=== PATIENT | female | born 2000 | race Caucasian/White ===

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

== ENCOUNTER 2021-01-14 11:32 | Emergency (ER) | payer OTHER, SELFPAY ==
[2021-01-14 12:08] VITALS: BP 98/70; PULSE 83; RESP 18; TEMP 36.8; O2SAT 100
--- NOTE | 2021-01-14 12:10 | PC.NURSE ---
Dr. Cardenas and TEZ Garcias, made aware that pt is moderate risk on [place] Risk Assessment.
[2021-01-14 12:25] LABS: Basophils Percent Auto 0.6 % (0.2-1.2); Eosinophils Absolute Auto 0.2 K/mm3 (0-0.3); Eosinophils Percent Auto 3.4 % (0-4.4); Hematocrit 38.4 % (37.0-47.0); Hemoglobin 12.9 g/dL (12.0-15.0); Immature Granulocyte Absolute 0.02 K/mm3 (0.00-0.031); Immature Granulocyte Percent A 0.3 % (0-0.5); Lymphocytes Absolute Auto 2.29 K/mm3 (0.9-3.2); Lymphocytes Percent Auto 35.8 % (18.3-44.2); Mean Corpuscular HGB Conc 33.6 g/dl (32-36); Mean Corpuscular Hemoglobin 29.4 pg (26-34); Mean Corpuscular Volume 87.5 fl (80-100); Mean Platelet Volume 8.8 fl (7.4-10.4); Monocytes Absolute Auto 0.4 K/mm3 (0.1-0.6); Monocytes Percent Auto 6.6 % (2.6-8.5); Neutrophils Absolute Auto 3.4 K/mm3 (1.3-6.7); Neutrophils Percent Auto 53.3 % (45.5-73.1); Platelet Count Result 326 k/mm3 (150-375); Red Blood Count 4.39 M/mm3 (4.2-5.4); Red Cell Distribution Width 12.1 % (11.5-14.5); White Blood Count 6.4 K/mm3 (4.5-10.0)
[2021-01-14 12:36] LABS: Alanine Aminotransferase 12 U/L (4-35); Albumin Level 4.5 g/dL (3.7-5.6); Alkaline Phosphatase 107 U/L (45-116); Anion Gap 6 mmol/L (8-16); Aspartate Amino Transferase 21 U/L (14-36); Bilirubin,Total 0.4 mg/dL (0.2-1.3); Blood Urea Nitrogen 5 mg/dL (8-21); Calcium 9.2 mg/dL (8.9-10.7); Carbon Dioxide 23 mmol/L (22-30); Chloride 109 mmol/L (98-107); Estimated CRCL calculation 68 ml/min; Estimated Glomerular Filt Rate > 60; Glucose 87 mg/dL (65-105); Potassium 3.6 mmol/L (3.4-5.0); Sodium 138 mmol/L (134-143)
[2021-01-14 12:37] VITALS: BP 115/75; PULSE 78; RESP 18; O2SAT 98
[2021-01-14 12:37] LABS: INR 0.9; Prothrombin Time 12.9 Seconds (11.1-14.7)
[2021-01-14 12:38] LABS: Partial Thromboplastin Time 27.5 SECONDS (22.3-36.8)
--- NOTE | 2021-01-14 13:05 | ED.FEMALEGU ---
HPI - Female Genitourinary General Chief complaint: Vaginal Bleeding Stated complaint: heavy menses, vag bleed Time Seen by Provider: 01/14/21 12:28 History of Present Illness HPI Narrative: Heavy menstraul bleeding since this morning. Going through about 1 pad per hour. History of irregular periods. Previously on oral contraceptives for this, but she did not take them consitantly, so they were stopped. No abdominal pain, nausea, vomiting, dyuria, urinary frequency, dizziness, weakness, SOB. Related Data Home Medications Medication Instructions Recorded Confirmed alprazolam 0.5 mg tablet,extended 0.5 mg PO DAILY 03/14/20 06/29/20 release 24 hr bupropion HCl 150 mg 24 hr tablet, 150 mg PO QAM 03/14/20 06/29/20 extended release [id number] 1 cap PO Q6H PRN 03/14/20 06/29/20 50 mg-325 mg-40 mg capsule citalopram 20 mg tablet 30 mg PO DAILY tablet 03/14/20 06/29/20 lithium carbonate 300 mg 1,200 mg PO .QHS tablet 03/14/20 06/29/20 tablet,extended release melatonin 5 mg tablet 10 mg PO .QHS tablet 03/14/20 06/29/20 prazosin 2 mg capsule 2 mg PO QPM 03/14/20 06/29/20 Allergies Allergy/AdvReac Type Severity Reaction Status Date / Time amoxicillin Allergy Unknown Hives Verified 01/20/21 08:55 lamotrigine Allergy Unknown Hives Verified 01/20/21 08:55 Sulfa (Sulfonamide Allergy Unknown Unknown Verified 01/20/21 08:55 Antibiotics) sulfamethizole Allergy Unknown Hives Verified 01/20/21 08:55 sulfamethoxazole Allergy Unknown Unknown Verified 01/20/21 08:55 trimethoprim Allergy Unknown Hives Verified 01/20/21 08:55 Review of Systems Review of Systems: All systems reviewed & are unremarkable except as noted in HPI and below Constitutional: Constitutional: Reports no additional constitutional complaints Cardiovascular: Cardiovascular: Denies chest pain Gastrointestinal: Gastrointestinal: Reports as per HPI Genitourinary: Genitourinary: Reports as per HPI Neurologic: Reports system reviewed and no additional complaints, except as documented Hematologic/Lymphatic: Hematologic/Lymphatic: Denies easy bleeding and Denies easy bruising PMFSH Past Medical History Medical History Bipolar disorder in partial remission Chronic migraine Social History Social History Social History: Single Smoking status: Smoker, status unknown (Pt vapes) Tobacco type: e-cigarettes/vaping Second hand tobacco smoke exposure: Yes Alcohol intake: never Substance use: former Substance use type: marijuana Last use: 3mo ago Gender identity (if verbalized by the patient): Female Exam Const: General: healthy appearing, no acute distress and alert Orientation/consciousness: patient oriented x3 HENMT: Head: normal to inspection Neck: Neck: normal visual inspection and no lymphadenopathy Chest: Chest palpation & inspection: no tenderness Resp: Effort & Inspection: normal respiratory effort Auscultation: clear to auscultation bilaterally, no rales, no rhonchi and no wheezes Cardio: Jugular venous distension: no JVD Rate: regular rate Rhythm: regular rhythm Heart sounds: no murmurs GI: Inspection: non-distended GI Palp: Yes Soft to palpation and No Tenderness to palpation present (GI) : External Female Exam: normal external appearance Speculum Exam - Vagina: vaginal bleeding (very mild) Speculum Exam - Cervix: normal appearance of the cervix Skin: General skin exam: normal color Neuro: General: patient oriented x3 and moves all extremities Speech: normal speech Extrem: General: no edema Psych: Appearance: well kempt Affect: normal affect Course Vital Signs Vital signs: Vital Signs Temperature 36.8 C 01/14/21 12:08 Pulse Rate 83 01/14/21 12:08 Respiratory Rate 18 01/14/21 12:08 Blood Pressure 98/70 L 01/14/21 12:08 Pulse Oximetry 100
[2021-01-14 13:42] LABS: Add Urine Microscopic? YES; Appearance Urine Cloudy (Clear); Bacteria Urine Trace /hpf; Bilirubin Urine Negative (Negative); Blood Urine 3+ (Negative); Color Urine Yellow (Yellow); Glucose Urine UA Negative (Negative); Ketones Urine Negative (Negative); Leukocyte Esterase Ur Negative LEU/UL (Negative); Nitrate Urine Negative (Negative); Protein Urine 1+ mg/dL (Negative); Specific Grav Ur 1.003 (1.001-1.035); Squamous Epithelial Cell Urine Many /hpf (Few); Urobilinogen Urine Negative mg/dL (<2.0); WBC Urine 0-3 /hpf
[2021-01-14 14:57] VITALS: BP 128/76; PULSE 70; RESP 18; O2SAT 98
== END 2021-01-14 14:58 | disposition home or self-care (01) ==
PROVIDERS: Emergency Medicine; Emergency Provider Emergency Medicine; PCP Family Medicine
DX: N93.9 Abnormal uterine and vaginal bleeding, unspecified (principal); F31.9 Bipolar disorder, unspecified; F17.290 Nicotine dependence, other tobacco product, uncomplicated
CPT/HCPCS: 36415; 80053; 81001; 81025; 85025; 85610; 85730; 99283

== ENCOUNTER 2022-04-10 04:47 | Emergency (ER) | payer BC, OTHER, SELFPAY ==
[2022-04-10 04:50] VITALS: BP 116/71; PULSE 54; RESP 14; TEMP 36.3; O2SAT 100
--- NOTE | 2022-04-10 06:39 | PC.NURSE ---
Patient came to intake/triage desk and informed publicity writer that she was just going to leave and call her dentist.
== END 2022-04-10 06:53 | disposition left against medical advice (07) ==
LOC: ANHED 06:53
PROVIDERS: PCP Family Medicine
DX: K08.89 Other specified disorders of teeth and supporting structures (principal)
CPT/HCPCS: 99199

== ENCOUNTER → 2022-05-10 12:21 | Outpatient (CLI) | payer BC, OTHER, SELFPAY ==
--- NOTE | ~2022-05-10 | US_ITS ---
EXAMINATION: US pelvic complete w TV DATE: 05/10/2022 13:40 INDICATION: Abnormal bleeding. Comparison:No prior studies for comparison. TECHNIQUE: Multiple transabdominal and endovaginal sonographic images of the pelvis performed. FINDINGS: The uterus measures 6.3 x 2.7 x 3.3 cm. The endometrial complex measures 3 mm. The right ovary measures 4.1 x 1.9 x 1.8 cm and the left ovary measures 2.4 x 1.4 x 1.5 cm. There ar e small follicles in each ovary. Normal doppler signal in both ovaries. There is no free fluid in the pelvis. There are no abnormal masses seen on either side. IMPRESSION: 1. Unremarkable pelvic ultrasound. Reviewed, dictated and finalized at location [facility].
== END ==
PROVIDERS: PCP Family Medicine; Visit Provider Nurse Practitioner
DX: N93.8 Other specified abnormal uterine and vaginal bleeding (principal)
CPT/HCPCS: 76830; 76856

== ENCOUNTER 2022-06-25 04:32 | Emergency (ER) | payer BC, OTHER, SELFPAY ==
--- NOTE | ~2022-06-25 | CT_ITS ---
EXAMINATION: CT brain wo con DATE: 06/25/2022 05:22 INDICATION: chronic cluster headaches TECHNIQUE: Computed tomography (CT) of the head was performed without intravenous contrast. Sagittal and coronal reconstructions were performed. The mA was adjusted according to patient size. Iterative reconstruction technique was employed. The dose-length product was 605.33 mGy-cm. COMPARISON: Brain MR dated 03/24/2018 FINDINGS: No acute intracranial hemorrhage, acute infarction or abnormal extra axial fluid collection. Ventricl es are normal and symmetric. No mass/mass effect. The orbits, paranasal sinuses and mastoid air cells are normal. IMPRESSION: 1. Normal head CT. Reviewed, dictated and finalized at [facility]. IMPRESSION: 1. Normal head CT.
[2022-06-25 04:41] VITALS: BP 120/76; PULSE 81; RESP 20; TEMP 36.6; O2SAT 100
--- NOTE | 2022-06-25 05:32 | ED.GENADULT ---
HPI - General Adult General Chief complaint: Headache Stated complaint: HENDRICKS Time Seen by Provider: 06/25/22 04:34 History of Present Illness HPI narrative: Patient a 22-year-old female who presents the emergency department with chief complaint of headache. Patient reports she has history of headaches and reports this evening her headache was a little different than normal. Patient states that she took her headache medications and has not had relief of her symptoms the patient also reports that she has been little twitchy and has noticed that she had some tingling on the right side of her face. The patient denies focal neurological deficit. Related Data Home Medications Medication Instructions Recorded Confirmed melatonin 5 mg tablet 10 mg PO .QHS 03/14/20 02/08/22 citalopram 20 mg tablet 60 mg PO DAILY 02/08/22 02/08/22 lithium carbonate 300 mg 600 mg PO .QHS 02/08/22 02/08/22 tablet,extended release Allergies Allergy/AdvReac Type Severity Reaction Status Date / Time amoxicillin Allergy Unknown Hives Verified 06/25/22 04:49 lamotrigine Allergy Unknown Hives Verified 06/25/22 04:49 Sulfa (Sulfonamide Allergy Unknown Unknown Verified 06/25/22 04:49 Antibiotics) sulfamethizole Allergy Unknown Hives Verified 06/25/22 04:49 sulfamethoxazole Allergy Unknown Unknown Verified 06/25/22 04:49 trimethoprim Allergy Unknown Hives Verified 06/25/22 04:49 Review of Systems Review of Systems: A 10 system review of systems was completed on the patient and is negative except for what is stated in the HPI. Nursing and ancillary documentation was reviewed. [facility] Past Medical History Medical History Bipolar disorder in partial remission Chronic migraine Family History Family History Other Depression Heart disease Hypertension Social History Social History Social History: Single Smoking status: Never smoker Tobacco type: e-cigarettes/vaping Second hand tobacco smoke exposure: Yes Alcohol intake: never Substance use: former Substance use type: marijuana Last use: 3mo ago Gender identity (if verbalized by the patient): Female Sexual Orientation (if Verbalized by the Patient): Straight or Heterosexual Exam Narrative: GENERAL: Well-appearing, well-nourished, and in no acute distress. HEAD: Normocephalic, atraumatic. EYES: PERRLA and EOMI. ENT: Nares clear, no rhinorrhea or epistaxis. Mucous membranes moist. NECK: Supple. CHEST: Clear to auscultation. No respiratory distress. HEART: Regular rate and rhythm. No murmur heard. Normal peripheral pulses. ABDOMEN: Soft, nontender, nondistended, normal active bowel sounds. EXTREMITIES: Normal range of motion. No edema. SKIN: Warm, dry, no rash. NEURO: No focal deficits. Alert and oriented x3. PSYCH: Normal mood and affect. Course Course Emergency Course: Patient received Compazine Benadryl and fluids as well as Toradol the patient did have some secondary akathisia as an tachycardia after receiving the antiemetic and Benadryl and subsequently those side effects have passed and the patient is feeling much better at this time with a headache essentially resolved. CT head showed no evidence of acute abnormality. CT was obtained due to significant change in her headache from her standard headaches Vital Signs Vital signs: Vital Signs Temperature 36.6 C 06/25/22 04:41 Pulse Rate 81 06/25/22 04:41 Respiratory Rate 20 06/25/22 04:41 Blood Pressure 120/76 06/25/22 04:41 Pulse Oximetry 100 06/25/22 04:41 Oxygen Delivery Room Air 06/25/22 04:41 Temperature 36.6 C 06/25/22 04:41 Pulse Rate 96 06/25/22 06:01 Respiratory Rate 18 06/25/22 06:01 Blood Pressure 120/76 06/25/22 04:41 Pulse Oximetry 100 06/25/22 06:01 Oxygen Delivery Mayuri
[2022-06-25] MEDS: PROCHLORPERAZINE EDISYLATE 10 MG/2 ML VIAL IV PUSH (05:39)
[2022-06-25] MEDS: SODIUM CHLORIDE 0.9% IV 1,000 ML 999 ML IV CONT (05:39)
[2022-06-25] MEDS: diphenhydrAMINE HCl INJ 50 MG/ML VIAL IV PUSH (05:39)
[2022-06-25] MEDS: KETOROLAC 30 MG/ML VIAL (*BKC) IV PUSH (05:39)
[2022-06-25 05:43] LABS: Basophils Percent Auto 0.5 % (0.2-1.2); Eosinophils Absolute Auto 0.2 K/mm3 (0-0.3); Eosinophils Percent Auto 2.7 % (0-4.4); Immature Granulocyte Absolute 0.03 K/mm3 (0.00-0.031); Immature Granulocyte Percent A 0.4 % (0-0.5); Lymphocytes Absolute Auto 2.94 K/mm3 (0.9-3.2); Lymphocytes Percent Auto 34.8 % (18.3-44.2); Mean Corpuscular HGB Conc 33.3 g/dl (32-36); Mean Corpuscular Hemoglobin 29.5 pg (26-34); Mean Corpuscular Volume 88.6 fl (80-100); Mean Platelet Volume 8.8 fl (7.4-10.4); Monocytes Absolute Auto 0.7 K/mm3 (0.1-0.6); Monocytes Percent Auto 8.8 % (2.6-8.5); Neutrophils Absolute Auto 4.5 K/mm3 (1.3-6.7); Neutrophils Percent Auto 52.8 % (45.5-73.1); Platelet Count Result 290 k/mm3 (150-375); Red Blood Count 4.74 M/mm3 (4.2-5.4); White Blood Count 8.4 K/mm3 (4.5-10.0)
[2022-06-25 05:54] LABS: Alanine Aminotransferase 15 U/L (6-35); Albumin Level 4.7 g/dL (3.5-5.1); Alkaline Phosphatase 78 U/L (38-126); Anion Gap 14 mmol/L (8-16); Aspartate Amino Transferase 22 U/L (14-36); Bilirubin,Total 0.5 mg/dL (0.2-1.3); Blood Urea Nitrogen 8 mg/dL (7-17); Calcium 9.3 mg/dL (8.4-10.2); Carbon Dioxide 25 mmol/L (22-30); Chloride 102 mmol/L (98-107); Estimated CRCL calculation 95 ml/min; Estimated Glomerular Filt Rate > 60; Glucose 84 mg/dL (65-110); Magnesium 2.3 mg/dL (1.6-2.3); Potassium 3.5 mmol/L (3.4-5.0); Sodium 141 mmol/L (137-145)
--- NOTE | 2022-06-25 05:58 | ECG_ITS ---
Measurements Intervals [place] Rate: 118 P: 59 [place]: 163 QRS: 49 QRSD: 103 T: -24 QT: 324 QTc: 455 Interpretive Statements SINUS TACHYCARDIA LEFT ATRIAL ENLARGEMENT INCOMPLETE RIGHT BUNDLE BRANCH BLOCK BORDERLINE ST-T WAVE ABNORMALITY- ANTEROLAT/INF LEADS BASELINE ARTIFACT- AVF ABNORMAL ECG NO PREVIOUS ECG AVAILABLE FOR COMPARISON Electronically Signed On 06-25-2022 21:18:19 CDT by Tapan Owens D.O.
[2022-06-25 06:01] VITALS: PULSE 96; RESP 18; O2SAT 100
--- NOTE | 2022-06-25 06:05 | PC.NURSE ---
after administering initial medications pt heart rate increased to 130s sinus tach on EKG. EDP notified. Pt refuses any further medications at this time.
[2022-06-25 07:09] VITALS: BP 127/83; PULSE 67; RESP 16; O2SAT 100
== END 2022-06-25 07:00 | disposition home or self-care (01) ==
PROVIDERS: Emergency Provider Emergency Medicine; PCP Family Medicine
DX: R51.9 Headache, unspecified (principal); F31.9 Bipolar disorder, unspecified; R00.0 Tachycardia, unspecified; I45.10 Unspecified right bundle-branch block; R94.31 Abnormal electrocardiogram [ECG] [EKG]
CPT/HCPCS: 36415; 70450; 80053; 83735; 85025; 93005; 96361; 96374; 96375; 99284; J0780; J1200; J1885; J7030

== ENCOUNTER 2022-07-09 12:26 | Emergency (ER) | payer BC, OTHER, SELFPAY ==
--- NOTE | 2022-07-09 09:44 | ECG_ITS ---
Measurements Intervals [place] Rate: 68 P: 54 [place]: 147 QRS: 52 QRSD: 100 T: 27 QT: 399 QTc: 425 Interpretive Statements SINUS RHYTHM POSSIBLE LEFT ATRIAL ENLARGEMENT [-0.1mV P WAVE IN V1/V2] POSSIBLE RIGHT VENTRICULAR CONDUCTION DELAY [RSR (QR) IN V1/V2] NONSPECIFIC T-WAVE ABNORMALITY COMPARED TO ECG 06/25/2022 05:58:55 SINUS RHYTHM NOW PRESENT Electronically Signed On 07-20-2022 12:45:16 CDT by Sulema Marti M.D.
[2022-07-09 12:28] VITALS: BP 113/70; PULSE 69; RESP 16; TEMP 36.6; O2SAT 100
--- NOTE | 2022-07-09 12:45 | ED.CHESTPAIN ---
HPI - Chest Pain General Chief Complaint: Chest Pain Stated Complaint: CHEST PAIN Time Seen by Provider: 07/09/22 12:30 Source: patient Mode of arrival: ambulatory Limitations: no limitations History of Present Illness HPI narrative: Ms. Khan is a 22-year-old female patient presenting to the clinic today with complaints of midsternal chest pain radiating into the shoulders and down her arms. She reports that this started approximately 30 minutes prior to arrival. She contacted her manager [employer] and he stated to go to the urgent care so she came in to be evaluated today. States the pain is very sharp and going through her chest. She denies any shortness of breath. She does report that she does a lot of heavy lifting as she works at [employer]. Does have history of bipolar. Was seen in the ED on the and had some EKG changes-left atrial enlargement, T wave changes, and incomplete right bundle branch block. She was told to follow-up with a manager [employer] at that time but has not yet seen them. She denies any flulike or COVID symptoms. She does vape but denies any tobacco use. She is not currently on any control Related Data Home Medications Medication Instructions Recorded Confirmed melatonin 5 mg tablet 10 mg PO .QHS 03/14/20 07/09/22 citalopram 20 mg tablet 60 mg PO DAILY 02/08/22 07/09/22 lithium carbonate 300 mg 600 mg PO .QHS 02/08/22 07/09/22 tablet,extended release Allergies Allergy/AdvReac Type Severity Reaction Status Date / Time amoxicillin Allergy Unknown Hives Verified 07/09/22 12:37 lamotrigine Allergy Unknown Hives Verified 07/09/22 12:37 Sulfa (Sulfonamide Allergy Unknown Unknown Verified 07/09/22 12:37 Antibiotics) sulfamethizole Allergy Unknown Hives Verified 07/09/22 12:37 sulfamethoxazole Allergy Unknown Unknown Verified 07/09/22 12:37 trimethoprim Allergy Unknown Hives Verified 07/09/22 12:37 Review of Systems Review of Systems: Pertinent positives per HPI. Patient denies any fever, chills, rash, headache, visual changes, dizziness, cough, runny nose, sore throat, shortness of breath, palpitations, nausea, vomiting, diarrhea, constipation, abdominal pain, or any urinary issues. PMFSH Past Medical History Medical History Abnormal EKG Bipolar disorder in partial remission Chronic migraine Family History Family History Other Depression Heart disease Hypertension Social History Social History (Updated 07/09/22 @ 15:03 by Mckenna Wyatt PA-C) Social History: Single Smoking status: Current every day smoker Tobacco type: e-cigarettes/vaping Second hand tobacco smoke exposure: Yes Alcohol intake: never Substance use: former Substance use type: marijuana Last use: 3mo ago Gender identity (if verbalized by the patient): Female Sexual Orientation (if Verbalized by the Patient): Straight or Heterosexual Comments At the time of my signature, I reviewed and agree with the nursing past medical, surgical, social, and family history. There is no relevant family history pertinent to the patient complaint. Exam Narrative: General: Well-developed, well nourished, in no apparent distress Head: Normocephalic, atraumatic. Chest: Even rise and fall of chest wall with respirations, no chest wall deformity, nontender to palpation across anterior chest Cardio: Regular rate and rhythm, s1 and s2 normal, no murmur appreciated. Resp: Clear to auscultation bilaterally, no rhonchi, rales, wheezing or rubs. Extremities: No deformity, no edema, no cyanosis, capillary refill less than 2 seconds, peripheral pulses palpable and strong. Integumentary: [place], warm, and dry, intact without lesion, no rashes. Course Course Emergency Course: Portions of this record may have been created with voice recognition software. Level of Care: Express Care Visit
== END 2022-07-09 12:46 | disposition short-term general hospital (02) ==
PROVIDERS: Emergency Provider Nurse Practitioner Family; PCP Family Medicine
DX: R07.9 Chest pain, unspecified (principal); F17.290 Nicotine dependence, other tobacco product, uncomplicated; F31.9 Bipolar disorder, unspecified
CPT/HCPCS: 93005; 99213; G0463

== ENCOUNTER 2022-07-09 13:08 | Emergency (ER) | payer BC, OTHER, SELFPAY ==
--- NOTE | ~2022-07-09 | XR_ITS ---
EXAMINATION: XR chest 2V 07/09/2022 13:56 INDICATION: Chest pain PROCEDURE: 2 view chest COMPARISON: 07/30/2018 FINDINGS: The lungs are clear. The cardiomediastinal silhouette is within normal limits. There are no pleural effusions. There is no pneumothorax suspected. IMPRESSION: 1: NO ACUTE CARDIOPULMONARY DISEASE. Reviewed, dictated and finalized at location [facility].
[2022-07-09 13:10] VITALS: BP 93/58; PULSE 79; RESP 20; TEMP 36.4; O2SAT 100
--- NOTE | 2022-07-09 13:10 | ECG_ITS ---
Measurements Intervals [place] Rate: 67 P: 56 [place]: 147 QRS: 56 QRSD: 93 T: 34 QT: 399 QTc: 423 Interpretive Statements SINUS RHYTHM INCOMPLETE RIGHT BUNDLE BRANCH BLOCK MINIMAL Q WAVES- INF/LAT LEADS BORDERLINE T WAVE ABNORMALITY- INFERIOR LEADS BASELINE ARTIFACT- V4-V5 BORDERLINE ECG COMPARED TO ECG 06/25/2022 05:58:55 HEART RATE HAS DECREASED Electronically Signed On 07-09-2022 13:37:10 CDT by Tapan Owens D.O.
[2022-07-09 13:30] LABS: Basophils Percent Auto 0.3 % (0.2-1.2); Eosinophils Absolute Auto 0.2 K/mm3 (0-0.3); Eosinophils Percent Auto 1.9 % (0-4.4); Hematocrit 41.7 % (37.0-47.0); Hemoglobin 13.8 g/dL (12.0-15.0); Immature Granulocyte Absolute 0.02 K/mm3 (0.00-0.031); Immature Granulocyte Percent A 0.3 % (0-0.5); Lymphocytes Absolute Auto 2.12 K/mm3 (0.9-3.2); Lymphocytes Percent Auto 27.4 % (18.3-44.2); Mean Corpuscular HGB Conc 33.1 g/dl (32-36); Mean Corpuscular Hemoglobin 29.7 pg (26-34); Mean Corpuscular Volume 89.9 fl (80-100); Mean Platelet Volume 8.8 fl (7.4-10.4); Monocytes Absolute Auto 0.7 K/mm3 (0.1-0.6); Monocytes Percent Auto 8.4 % (2.6-8.5); Neutrophils Absolute Auto 4.8 K/mm3 (1.3-6.7); Neutrophils Percent Auto 61.7 % (45.5-73.1); Platelet Count Result 316 k/mm3 (150-375); Red Blood Count 4.64 M/mm3 (4.2-5.4); Red Cell Distribution Width 12.1 % (11.5-14.5); White Blood Count 7.7 K/mm3 (4.5-10.0)
[2022-07-09 13:41] LABS: Alanine Aminotransferase 16 U/L (6-35); Albumin Level 4.5 g/dL (3.5-5.1); Alkaline Phosphatase 70 U/L (38-126); Anion Gap 9 mmol/L (8-16); Aspartate Amino Transferase 24 U/L (14-36); Bilirubin,Total 0.3 mg/dL (0.2-1.3); Blood Urea Nitrogen 8 mg/dL (7-17); Calcium 8.9 mg/dL (8.4-10.2); Carbon Dioxide 26 mmol/L (22-30); Chloride 105 mmol/L (98-107); Estimated CRCL calculation 87 ml/min; Estimated Glomerular Filt Rate > 60; Glucose 79 mg/dL (65-110); Lipase 132 U/L (23-300); Potassium 3.8 mmol/L (3.4-5.0); Sodium 140 mmol/L (137-145)
[2022-07-09 13:43] LABS: Prothrombin Time 13.2 Seconds (11.1-14.7)
[2022-07-09 13:52] LABS: Troponin I < 0.012 ng/mL (0.000-0.034)
--- NOTE | 2022-07-09 15:02 | ED.CHESTPAIN ---
HPI - Chest Pain General Chief Complaint: Chest Pain Stated Complaint: chest pain Time Seen by Provider: 07/09/22 14:56 Source: patient Mode of arrival: ambulatory Limitations: no limitations History of Present Illness HPI narrative: This is a 22-year-old female that presents to the emergency department for lower chest pain ongoing today. Reports some sharp, intermittent chest pains. They have mostly resolved now. She was seen at urgent care and sent to the ER for further evaluation. Denies fever, cough, shortness of breath, or swelling in her legs. Related Data Home Medications Medication Instructions Recorded Confirmed melatonin 5 mg tablet 10 mg PO .QHS 03/14/20 07/09/22 citalopram 20 mg tablet 60 mg PO DAILY 02/08/22 07/09/22 lithium carbonate 300 mg 600 mg PO .QHS 02/08/22 07/09/22 tablet,extended release Allergies Allergy/AdvReac Type Severity Reaction Status Date / Time amoxicillin Allergy Unknown Hives Verified 07/09/22 12:37 lamotrigine Allergy Unknown Hives Verified 07/09/22 12:37 Sulfa (Sulfonamide Allergy Unknown Unknown Verified 07/09/22 12:37 Antibiotics) sulfamethizole Allergy Unknown Hives Verified 07/09/22 12:37 sulfamethoxazole Allergy Unknown Unknown Verified 07/09/22 12:37 trimethoprim Allergy Unknown Hives Verified 07/09/22 12:37 Review of Systems Review of Systems: CONSTITUTIONAL: Denies fever CARDIOVASCULAR: Reports chest pain. Denies edema. RESPIRATORY: Denies cough or dyspnea. All systems reviewed & are unremarkable except as noted in HPI and below PMFSH Past Medical History Medical History Abnormal EKG Bipolar disorder in partial remission Chronic migraine Family History Family History Other Depression Heart disease Hypertension Social History Social History (Updated 07/09/22 @ 15:03 by Mckenna Wyatt PA-C) Social History: Single Smoking status: Current every day smoker Tobacco type: e-cigarettes/vaping Second hand tobacco smoke exposure: Yes Alcohol intake: never Substance use: former Substance use type: marijuana Last use: 3mo ago Gender identity (if verbalized by the patient): Female Sexual Orientation (if Verbalized by the Patient): Straight or Heterosexual Exam Narrative: GENERAL: Well-appearing, well-nourished, and in no acute distress. HEAD: Normocephalic, atraumatic. EYES: EOMI. CHEST: Clear to auscultation. No respiratory distress. No wheezes rales or rhonchi HEART: Regular rate and rhythm. No murmur heard. Normal peripheral pulses. EXTREMITIES: Normal range of motion. No edema. SKIN: Warm, dry, no rash. NEURO: No focal deficits. Alert and oriented x3. PSYCH: Normal mood and affect Course Vital Signs Vital signs: Vital Signs Temperature 97.6 F 07/09/22 13:10 Pulse Rate 79 07/09/22 13:10 Respiratory Rate 20 07/09/22 13:10 Blood Pressure 93/58 L 07/09/22 13:10 Pulse Oximetry 100 07/09/22 13:10 Temperature 97.6 F 07/09/22 13:10 Pulse Rate 77 07/09/22 15:54 Respiratory Rate 16 07/09/22 15:54 Blood Pressure 102/68 07/09/22 15:54 Pulse Oximetry 100 07/09/22 15:54 MDM - Chest Pain MDM Narrative Medical decision making narrative: Patient presents to the emergency department for some intermittent sharp chest pains noted today. She is afebrile and nontoxic-appearing. Her vitals are stable. Chest pain had resolved upon arrival to the ED. CBC and metabolic panel without concerning findings. EKG with nonspecific ST changes. Baseline and 3-hour troponin are negative. D-dimer is not elevated. Chest x-ray without acute cardiopulmonary abnormality. Patient and family updated on case findings. She is stable and felt appropriate for further outpatient evaluation. She was given warnings to return to the ER Lab Data Attestation: I reviewed the patient's lab results.
[2022-07-09 15:07] VITALS: PULSE 73; RESP 16; O2SAT 100
[2022-07-09 15:21] VITALS: BP 99/55
[2022-07-09 15:29] LABS: D Dimer < 0.27 ug/mL (<0.48)
[2022-07-09 15:54] VITALS: BP 102/68; PULSE 77; RESP 16; O2SAT 100
[2022-07-09 17:28] LABS: Troponin I < 0.012 ng/mL (0.000-0.034)
[2022-07-09 18:07] VITALS: BP 118/68; PULSE 72; RESP 16; TEMP 36.4; O2SAT 100
== END 2022-07-09 18:08 | disposition home or self-care (01) ==
PROVIDERS: Physician Assistant; Emergency Provider Emergency Medicine; PCP Family Medicine
DX: R07.9 Chest pain, unspecified (principal); F17.290 Nicotine dependence, other tobacco product, uncomplicated; F12.90 Cannabis use, unspecified, uncomplicated
CPT/HCPCS: 36415; 71046; 80053; 83690; 84484; 85025; 85380; 85610; 85730; 93005; 99284

== ENCOUNTER 2022-07-13 11:54 | Outpatient (CLI) | payer BC, OTHER, SELFPAY ==
--- NOTE | ~2022-07-13 | US_ITS ---
EXAMINATION: US breast RT limited HISTORY: White and yellow right nipple discharge TECHNIQUE: Targeted ultrasound in the subareolar aspect of the right breast is performed. FINDINGS: There is no evidence of focal abnormal cystic or solid mass in the vicinity of the subareol ar breast. No sonographic correlate is identified for the patient's nipple discharge. IMPRESSION: No specific sonographic correlate is identified for the patient's nipple discharge. Further evaluatio n at this time should be based on clinical assessment. Continued follow-up physical examination is re commended. BI-RADS Category 1: Negative Reviewed, dictated and finalized at location A. IMPRESSION: No specific sonographic correlate is identified for the patient's nipple discha rge. Further evaluation at this time should be based on clinical assessment. Co ntinued follow-up physical examination is recommended. BI-RADS Category 1: Negative
== END 2022-07-13 11:55 | disposition home or self-care (01) ==
LOC: ANHIMG 11:56
PROVIDERS: PCP Family Medicine; Visit Provider Nurse Practitioner Gerontology
DX: N64.52 Nipple discharge (principal)
CPT/HCPCS: 76642

== ENCOUNTER 2022-10-21 22:24 | Observation (INO) | payer BC, OTHER, SELFPAY ==
[2022-10-21] VITALS (11 sets, daily range): BP systolic 98–117; BP diastolic 62–77; PULSE 64–83; RESP 13–20; TEMP 36.3; O2SAT 100
--- NOTE | ~2022-10-21 | CT_ITS ---
EXAMINATION: CT abdomen pelvis w con DATE: 10/22/2022 00:24 INDICATION: Epigastric abdominal pain. Right lower quadrant abdominal pain. Diarrhea. TECHNIQUE: Computed tomography (CT) of the abdomen and pelvis was performed with 100 mL Omnipaque 350 intravenous contrast. Automated exposure control and iterative reconstruction technique were employe d. The dose-length product was 350.21 mGy-cm. COMPARISON: CT abdomen and pelvis 03/14/2020 FINDINGS: The visualized portions of the lung bases are clear without pneumonia or pleural effusion. The heart size is normal. No pericardial effusion. There is a 4 mm cyst in the liver. The gallbladder , spleen, pancreas, adrenal glands, and kidneys are normal. There is an intrauterine device in expect ed position. The appendix measures 9 mm in diameter. There are no pathologically enlarged lymph nodes . There is physiologic fluid in the pelvis. There is mild thoracolumbar spondylosis. IMPRESSION: 1. Appendiceal diameter of 9 mm suspicious for acute appendicitis. Reviewed, dictated and finalized at location A. E[facility]
--- NOTE | 2022-10-21 22:40 | ED.GENADULT ---
HPI - General Adult General Chief complaint: Nausea/Vomiting/Diarrhea <ROSALINA Giron Last Filed: 10/22/22 03:59> Stated complaint: constipation <ROSALINA Giron Last Filed: 10/22/22 03:59> Time Seen by Provider: 10/21/22 22:27 <ROSALINA Giron Last Filed: 10/22/22 03:59> Source: patient <ROSALINA Giron Last Filed: 10/22/22 03:59> Mode of arrival: ambulatory <ROSALINA Giron Last Filed: 10/22/22 03:59> Limitations: no limitations <ROSALINA Giron Last Filed: 10/22/22 03:59> History of Present Illness HPI narrative: Patient is a 22-year-old female who presents the ED with report of upper abdominal pain. Patient reports she was constipated for 2 weeks within the last 3 weeks. Over the past week, she has had diarrhea after taking stool softeners and laxatives, but states she still feels like there is stool that needs to come out and can't. Today, she began having diffuse abdominal pain, worst in her upper abdomen, which prompted her presentation. She has not tried anything for pain. She also c/o nausea, but denies vomiting, rectal bleeding, urinary sx's, fevers. <ROSALINA Giron Last Filed: 10/22/22 03:59> Related Data Home medications: Home Medications Medication Instructions Recorded Confirmed melatonin 5 mg tablet 10 mg PO .QHS 03/14/20 09/21/22 citalopram 20 mg tablet 60 mg PO DAILY 02/08/22 09/21/22 lithium carbonate 300 mg 600 mg PO .QHS 02/08/22 09/21/22 tablet,extended release levonorgestrel 20 mcg/24 hours (8 1 device intrauterine ONCE 09/10/22 09/21/22 yrs) 52 mg intrauterine device (Mirena) atogepant 60 mg tablet (Qulipta) 60 mg PO DAILY 09/13/22 09/21/22 <Alicia Santos PA-C - Last Filed: 10/22/22 03:59> Allergies/adverse reactions: Allergies Allergy/AdvReac Type Severity Reaction Status Date / Time amoxicillin Allergy Unknown Hives Verified 09/21/22 14:52 lamotrigine Allergy Unknown Hives Verified 09/21/22 14:52 Sulfa (Sulfonamide Allergy Unknown Unknown Verified 09/21/22 14:52 Antibiotics) sulfamethizole Allergy Unknown Hives Verified 09/21/22 14:52 sulfamethoxazole Allergy Unknown Unknown Verified 09/21/22 14:52 trimethoprim Allergy Unknown Hives Verified 09/21/22 14:52 <Alicia Santos PA-C - Last Filed: 10/22/22 03:59> Review of Systems Review of Systems: CONSTITUTIONAL: Denies fever, chills, or sweats. CARDIOVASCULAR: Denies chest pain. RESPIRATORY: Denies dyspnea. GASTROINTESTINAL: See HPI. GENITOURINARY: Denies dysuria or hematuria. SKIN: Denies rash or itching. <Alicia Santos PA-C - Last Filed: 10/22/22 03:59> All systems reviewed & are unremarkable except as noted in HPI and below <Alicia Santos PA-C - Last Filed: 10/22/22 03:59> FOR[facility]LY [facility] Past Medical History Medical History: Medical History (Updated 10/22/22 @ 03:59 by Alicia Santos PA-C) Abnormal EKG Bipolar disorder in partial remission Chronic migraine <Alicia Santos PA-C - Last Filed: 10/22/22 03:59> Surgical History Surgical History: Surgical History (Updated 10/21/22 @ 22:40 by Alicia Santos PA-C) No pertinent past surgical history <Alicia Santos PA-C - Last Filed: 10/22/22 03:59> Family History Family History: Family History Other Depression Heart disease Hypertension <Alicia Santos PA-C - Last Filed: 10/22/22 03:59> Social History Social History: Social History Social History: Single Smoking status: Smoker, status unknown Tobacco type: e-cigarettes/vaping Second hand tobacco smoke exposure: Yes Alcohol intake: never Substance use: former Substance use type: marijuana Last use: 3mo ago Gender identity (if verbalized by the patient): Female
[2022-10-21] MEDS: SODIUM CHLORIDE 0.9% IV 1,000 ML 999 ML IV CONT (23:01)
[2022-10-21] MEDS: ONDANSETRON INJ 4 MG/2 ML VIAL IV PUSH (23:01)
[2022-10-21 23:12] LABS: Basophils Absolute Auto 0.1 K/mm3 (0.0-0.1); Basophils Percent Auto 0.4 % (0.2-1.2); Eosinophils Absolute Auto 0.2 K/mm3 (0-0.3); Eosinophils Percent Auto 1.1 % (0-4.4); Hematocrit 41.2 % (37.0-47.0); Hemoglobin 13.6 g/dL (12.0-15.0); Immature Granulocyte Absolute 0.06 K/mm3 (0.00-0.031); Immature Granulocyte Percent A 0.4 % (0-0.5); Lymphocytes Absolute Auto 2.19 K/mm3 (0.9-3.2); Lymphocytes Percent Auto 13.7 % (18.3-44.2); Mean Corpuscular Hemoglobin 29.8 pg (26-34); Mean Corpuscular Volume 90.2 fl (80-100); Mean Platelet Volume 8.8 fl (7.4-10.4); Monocytes Absolute Auto 1.2 K/mm3 (0.1-0.6); Monocytes Percent Auto 7.4 % (2.6-8.5); Neutrophils Absolute Auto 12.3 K/mm3 (1.3-6.7); Platelet Count Result 274 k/mm3 (150-375); Red Blood Count 4.57 M/mm3 (4.2-5.4); Red Cell Distribution Width 12.2 % (11.5-14.5)
[2022-10-21 23:29] LABS: Alanine Aminotransferase 16 U/L (6-35); Albumin Level 4.1 g/dL (3.5-5.1); Alkaline Phosphatase 75 U/L (38-126); Anion Gap 4 mmol/L (8-16); Aspartate Amino Transferase 20 U/L (14-36); Bilirubin,Total 0.5 mg/dL (0.2-1.3); Blood Urea Nitrogen 8 mg/dL (7-17); Calcium 8.6 mg/dL (8.4-10.2); Carbon Dioxide 26 mmol/L (22-30); Chloride 109 mmol/L (98-107); Estimated CRCL calculation 88 ml/min; Estimated Glomerular Filt Rate > 60; Glucose 88 mg/dL (65-110); Lipase 174 U/L (23-300); Potassium 3.5 mmol/L (3.4-5.0); Sodium 139 mmol/L (137-145)
[2022-10-22] VITALS (28 sets, daily range): BP systolic 102–127; BP diastolic 58–80; PULSE 59–119; RESP 12–22; TEMP 36.3–37.3; O2SAT 96–100; BMI 34.7
[2022-10-22 00:15] LABS: Add Urine Microscopic? YES; Appearance Urine Slightly Cloudy (Clear); Bilirubin Urine Negative (Negative); Blood Urine 2+ (Negative); Color Urine Yellow (Yellow); Glucose Urine UA Negative (Negative); Ketones Urine Negative (Negative); Leukocyte Esterase Ur Negative LEU/UL (Negative); Nitrate Urine Negative (Negative); Protein Urine Negative (Negative); Specific Grav Ur 1.015 (1.001-1.035); Urobilinogen Urine 0.2 mg/dL (<2.0)
[2022-10-22] MEDS: FAMOTIDINE 20 MG/2 ML VIAL IV PUSH ×2 (04:00→09:43)
[2022-10-22] MEDS: metroNIDAZOLE 500 MG/ISO 100ML 500 MG/100 ML BAG 100 MG IVPB ×2 (04:01→09:43)
[2022-10-22 04:58] LABS: Influenza A QL RT-PCR Negative (Negative); Influenza B QL RT-PCR Negative (Negative); SARS-CoV-2 RNA PCR Negative
--- NOTE | 2022-10-22 05:59 | ADMGEN ---
This patient, Mckenna Khan, was admitted to Medical Room 343-01. Patient/family oriented to hospital policies and general routines including ID bracelet, bed and alarms, visiting hours, pain management, procedures, bathroom and other care routines, personal items, smoking policy, room service/diet, and visiting hours. Information on how to activate the Rapid Response Team has been discussed. Patient/Family are encouraged to report perceived risks to care and to ask questions if they do not understand what they are told or what they should do.
--- NOTE | 2022-10-22 08:38 | PM.IMHP ---
H&P: HPI History of Present Illness Date/Time: 10/22/22 08:38 Chief Complaint: Right lower quadrant abdominal pain suspicious for acute appendicitis. Narrative: The patient is a 22-year-old female who presented to the emergency room with a one-day history of some sharp stabbing pain which started in the upper middle portion of the abdomen and has now localized the right lower quadrant. She felt bloated and that she was constipated. She has never had pain like this in the past and has never had issues with ovarian cysts. In the emergency room she had an elevated white blood cell count of 16,[address] scan of the abdomen pelvis showed a 9millimeter in diameter appendix with minimal periappendiceal inflammation. She was started on IV antibiotics and admitted to the hospital for probable early acute appendicitis. Review of Systems Review of Systems: The remainder of the review of systems to include constitutional, HEENT, cardiovascular, respiratory, GI, , integumentary, musculoskeletal, endocrine, immunologic, hematologic, psychiatric, and neurologic are all negative except for which is mentioned above in the HPI. [facility] Past Medical History Medical History Abnormal EKG Bipolar disorder in partial remission Chronic migraine Surgical History Surgical History No pertinent past surgical history Family History Family History Father Depression Heart disease Hypertension Social History Social History Social History: Single Smoking status: Current every day smoker Tobacco type: e-cigarettes/vaping Second hand tobacco smoke exposure: Yes Alcohol intake: never Substance use: never Substance use type: marijuana Last use: 3mo ago Lack of Transportation: No Lack of Food: Never True Current Housing: I Have Housing Concerned About Future Housing: No Difficulty Paying Gas/Electric Bills: No Difficulty Paying for Meds: No Currently Unemployed: No Education: High School Diploma/GED Difficulty w/ Childcare or Family Care: No Gender identity (if verbalized by the patient): Female Sexual Orientation (if Verbalized by the Patient): Straight or Heterosexual Spiritual care concerns: No Comments Patient has a complaint IUD and only spots for her menstrual peroids. She has not had any issues with ovarian cysts in the past. Her test was negative. Meds Home Medications and Allergies Home Medications Medication Instructions Recorded Confirmed Type melatonin 5 mg tablet 10 mg PO PRN PRN Insomnia 03/14/20 10/22/22 History citalopram 20 mg tablet 60 mg PO DAILY 02/08/22 10/22/22 History lithium carbonate 300 mg 600 mg PO .QHS 02/08/22 10/22/22 History tablet,extended release levonorgestrel 20 mcg/24 hours (8 1 device intrauterine ONCE 09/10/22 10/22/22 History yrs) 52 mg intrauterine device (Mirena) ubrogepant 50 mg tablet (Ubrelvy) See Rx Instructions .Route 10/22/22 10/22/22 History .COMPLEX PRN Migraine Headache Allergies Allergy/AdvReac Type Severity Reaction Status Date / Time amoxicillin Allergy Unknown Hives Verified 10/22/22 06:14 lamotrigine Allergy Unknown Hives Verified 10/22/22 06:14 Sulfa (Sulfonamide Allergy Unknown Unknown Verified 10/22/22 06:14 Antibiotics) sulfamethizole Allergy Unknown Hives Verified 10/22/22 06:14 sulfamethoxazole Allergy Unknown Unknown Verified 10/22/22 06:14 trimethoprim Allergy Unknown Hives Verified 10/22/22 06:14 Vital Signs Vital Signs - 24 hr 10/21/22 22:34 10/21/22 22:38 10/21/22 22:45 Temperature 36.3 C L Pulse Rate 70 71 80 Respiratory Rate 16 19 13 Blood Pressure 113/68 Pulse Oximetry 100 100 100 10/21/22 22:46 10/21/22 23:00 10/21/22 23:01 Temperature Pulse Rat
[2022-10-22] MEDS: DEXTROSE 5%/0.9% SOD CHL 1,000 ML 125 ML IV CONT (09:42)
--- NOTE | 2022-10-22 13:27 | WPDHPUPDATE1 ---
History and Physical Update Update Date/Time: 10/22/22 13:27 History and Physical has been reviewed, including an updated exam of the patient. There are NO changes in the patient's condition. Risks, benefits, and alternatives have been discussed and questions answered. Patient agrees to proceed with procedure.
--- NOTE | 2022-10-22 13:34 | WPDANESEPPF ---
Anes - Initial Pre Proc Eval Procedure: Operation Date: 10/22/22 14:30 Proposed Procedures p Laparoscopic Appendectomy,Possible Open - Fermin Lopez MD Date/Time: 10/22/22 13:34 Surgeon: Fermin Lopez MD Pre Op Diagnosis: Acute Appendicitis Patient Data Age: 22 Gender: F Height: 1.57 m Weight: 86.1 kg Last Vital Signs Temp 97.4 F L 10/22/22 06:00 Pulse 70 10/22/22 06:00 Resp 16 10/22/22 06:00 BP 127/58 L 10/22/22 06:00 Pulse Ox 100 10/22/22 06:00 O2 Del Method Room Air 10/22/22 08:30 Allergies Allergy/AdvReac Type Severity Reaction Status Date / Time amoxicillin Allergy Unknown Hives Verified 10/22/22 06:14 lamotrigine Allergy Unknown Hives Verified 10/22/22 06:14 Sulfa (Sulfonamide Allergy Unknown Unknown Verified 10/22/22 06:14 Antibiotics) sulfamethizole Allergy Unknown Hives Verified 10/22/22 06:14 sulfamethoxazole Allergy Unknown Unknown Verified 10/22/22 06:14 trimethoprim Allergy Unknown Hives Verified 10/22/22 06:14 Home Medications Medication Instructions Recorded Confirmed Type melatonin 5 mg tablet 10 mg PO PRN PRN Insomnia 03/14/20 10/22/22 History citalopram 20 mg tablet 60 mg PO DAILY 02/08/22 10/22/22 History lithium carbonate 300 mg 600 mg PO .QHS 02/08/22 10/22/22 History tablet,extended release levonorgestrel 20 mcg/24 hours (8 1 device intrauterine ONCE 09/10/22 10/22/22 History yrs) 52 mg intrauterine device (Mirena) ubrogepant 50 mg tablet (Ubrelvy) See Rx Instructions .Route 10/22/22 10/22/22 History .COMPLEX PRN Migraine Headache Laboratory Tests 10/21/22 10/21/22 10/21/22 23:06 23:06 23:47 WBC 16.0 K/mm3 H K/mm3 (4.5-10.0) RBC 4.57 M/mm3 M/mm3 (4.2-5.4) Hgb 13.6 g/dL g/dL (12.0-15.0) Hct 41.2 % % (37.0-47.0) MCV 90.2 fl fl (80-100) MCH 29.8 pg pg (26-34) MCHC 33.0 g/dl g/dl (32-36) RDW 12.2 % % (11.5-14.5) Plt Count 274 k/mm3 k/mm3 (150-375) MPV 8.8 fl fl (7.4-10.4) Immature Gran % (Auto) 0.4 % % (0-0.5) Neut % (Auto) 77.0 % H % (45.5-73.1) Lymph % (Auto) 13.7 % L % (18.3-44.2) Custer % (Auto) 7.4 % % (2.6-8.5) Eos % (Auto) 1.1 % % (0-4.4) Baso % (Auto) 0.4 % % (0.2-1.2) Lymph # (Auto) 2.19 K/mm3 K/mm3 (0.9-3.2) Custer # (Auto) 1.2 K/mm3 H K/mm3 (0.1-0.6) Eos # (Auto) 0.2 K/mm3 K/mm3 (0-0.3) Baso # (Auto) 0.1 K/mm3 K/mm3 (0.0-0.1) Abs Immat Gran (auto) 0.06 K/mm3 H K/mm3 (0.00-0.031) Absolute Neuts (auto) 12.3 K/mm3 H K/mm3 (1.3-6.7) Absolute Nucleated RBC 0.0 K/mm3 K/mm3 (0.0-0.012) Nucleated RBC % 0.0 % % (0.0-0.2) Sodium 139 mmol/L mmol/L (137-145) Potassium 3.5 mmol/L mmol/L (3.4-5.0) Chloride 109 mmol/L H mmol/L (98-107) Carbon Dioxide 26 mmol/L mmol/L (22-30) Anion Gap 4 mmol/L L mmol/L (8-16) BUN 8 mg/dL mg/dL (7-17) Creatinine 0.80 mg/dL mg/dL (0.7-1.0) Estim Creat Clear Calc 88 ml/min ml/min Estimated GFR > 60 (59 - ) Glucose 88 mg/dL mg/dL (65-110) Calcium 8.6 mg/dL mg/dL (8.4-10.2) Total Bilirubin 0.5 mg/dL mg/dL (0.2-1.3) AST 20 U/L U/L (14-36) ALT 16 U/L U/L (6-35) Alkaline Phosphatase 75 U/L U/L (38-126) Total Protein 6.0 g/dL L g/dL (6.3-8.2) Albumin 4.1 g/dL g/dL (3.5-5.1) Lipase 174 U/L U/L (23-300) Urine Color Yellow (Yellow) Urine Appearance Slightly cloudy (Clear) Urine pH 6.0 (5.0-9.0) Ur Specific Shelly 1.015 (1.001-1.035) Urine Protein Negative mg/dL mg/dL (Negative) Urine Glucose (UA) Negative mg/dL mg/dL (Negative) Urine Ketones Nega
[2022-10-22] MEDS: BUPIVACAINE/EPINEPHRINE 0.5% 10 ML VIAL 30 ML INFILTRATE (15:05)
[2022-10-22] MEDS: LIDOCAINE HCL 1% PF 30 ML VIAL INFILTRATE (15:06)
--- NOTE | 2022-10-22 15:41 | P.OP_ITS ---
Procedure Note - Detailed Date of Procedure 10/22/22 Pre-op Diagnosis Acute Appendicitis Post-op Diagnosis Same Procedure Performed Laparoscopic appendectomy Surgeon Fermin Lopez MD Anesthesia General Indications Patient with right lower quadrant abdominal pain and 16,000 white blood cell count with CT scan and pelvis showing dilated mildly dilated and inflamed appendix without abscess or perforation. Findings The appendix was very mildly inflamed with hyperemia. The proximal 1/2 of the appendix appeared normal there is no periappendiceal abscess or perforation. Description of Procedure After informed consent was obtained the patient was brought to the operating room where she was placed in a supine position and general endotracheal anesthesia was administered. A Carreon catheter was placed to decompress the bladder and orogastric tube was placed to decompress the stomach. A time-out was then performed correctly identifying the patient as well as the procedure be performed. she was already on scheduled IV antibiotics. I gained access to the abdomen by placing a 5millimeter Optiview port in the left upper quadrant. once inside the abdomen I insufflated to a pack a pneumoperitoneum of 15millimeters mercury CO2. I then placed a 12millimeter periumbilical trocar port and a 5millimeter suprapubic trocar port and a 5millimeter right lower quadrant trocar port all under direct visualization. The appendix was not visualized in the right lower quadrant of the abdomen. It was inflamed with mild dilation and erythema of the distal 1/2 of the appendix. There is no evidence of perforation or abscess. I then held the appendix with a laparoscopic grasper and then made a defect through the mesial appendix with a laparoscopic instrument near the base. A 45millimeter Endo-ASHU Stapler then used to divide the appendix leaving less than 0.5 cm of the base. Vascular reload to the Endo ASHU Stapler was then used to divide the mesoappendix. The appendix was then placed into an Endo- Catch bag and brought out through the periumbilical trocar port site. The appendix was sent to pathology for examination. I then irrigated out the right lower quadrant the abdomen and inspected all staple lines. There is no bleeding from staple lines. They removed the trocar ports under visualization after aspirating the fluid from the pelvis and the right lower quadrant. All the port sites appeared hemostatic. I then allowed the abdomen decompress. I then proceeded to close the 12millimeter periumbilical trocar port fascial defect. This was done with a 0 Vicryl suture placed in a mdevly-cf-ciory fashion. I then proceed to close all the port site incisions utilizing a running subcuticular 4 0 Monocryl suture. Incisions were then clean and then skin glue was used for final dressing. The patient tolerated the procedure well and there no complications. All sponge, needles, and instrument counts were correct at the end the procedure. Estimated blood loss was 10cc. The patient was awakened and extubated and taken to recovery in stable satisfactory condition. The Carreon catheter was removed at the end of the procedure. Estimated Blood Loss 10 Drains No Packing No Pathology Yes (Appendix to path) Complications No immediate complications Condition Stable Disposition PACU [facility] Billing Surgery - Charge Forward: Surgery Billing
[2022-10-22] MEDS: LACTATED RINGERS 1,000 ML 30 ML IV CONT ×2 (15:45)
[2022-10-22] MEDS: fentaNYL CITRATE INJ (*CRX) 100 MCG/2 ML VIAL 25 MCG IV PUSH ×2 (16:23→16:36)
--- NOTE | 2022-10-22 18:39 | PHAR ---
PT'S HOME MED LITHIUM CARBONATE ER 300 MG TABS VERIFIED BY PHARMACY
[2022-10-22] MEDS: CITALOPRAM HYDROBROMIDE 20 MG TABLET 60 MG PO (20:16)
[2022-10-23] MEDS: DEXTROSE 5%/0.9% SOD CHL 1,000 ML 125 ML IV CONT ×2 (00:06→08:53)
[2022-10-23 05:59] VITALS: BP 86/49; PULSE 73; RESP 14; TEMP 36.7; O2SAT 99
--- NOTE | 2022-10-23 09:15 | WPDANESPN ---
Anes - Prog Note Post-Op Date/Time: 10/23/22 09:15 Cardiovascular status: normal Respiratory status: normal Airway patency: baseline Mental status: baseline Post-Op hydration status: normal Vital Signs: Last Vital Signs Temp 36.7 C 10/23/22 05:59 Pulse 73 10/23/22 05:59 Resp 14 10/23/22 05:59 BP 86/49 L 10/23/22 05:59 Pulse Ox 99 10/23/22 05:59 O2 Del Method Room Air 10/22/22 17:00 O2 Flow Rate 7 10/22/22 16:15 Pain Score (VAS): 2 I/O: Intake & Output 10/22/22 10/23/22 10/23/22 23:59 07:59 15:59 Intake Total 1999 644 8630 Balance 2875 929 6718 Laboratory Tests 10/21/22 23:06 10/21/22 23:06 Post-procedural complaints: none Patient Feedback: Patient satisfied with anesthetic care.
--- NOTE | 2022-10-23 10:12 | PM.DS ---
DS: Admitting Diagnosis Discharge Date October 23, 2022 Admitting Diagnosis Acute appendicitis DS: Discharge Diagnosis Discharge Diagnosis Plan Acute appendicitis DS: Summary Hospital Course Hospital Course: The patient presented to the [facility] room with complaints of mid and upper abdominal pain which localized the right lower quadrant of the abdomen. She had a workup showing an elevated white blood cell count of 16,[address] scan abdomen pelvis showed a dilated appendix at 9millimeters in diameter but minimal periappendiceal inflammatory changes. On examination at the bedside she had some guarding and moderately severe tenderness to deep palpation right lower quadrant of the abdomen over McBurney's point. The clinical picture consistent with acute appendicitis which was likely early. She was then admitted to the floor on IV antibiotics and kept NPO overnight. The next day she was then taken to the operating room where she underwent a an uncomplicated laparoscopic appendectomy. Postoperatively in the recovery room course is uneventful and she was transferred back to the surgical floor. While on the surgical floor and on she did very well and her pain was well controlled with Tylenol. She tolerated solid food the next morning and was up ambulating in the room. She remained afebrile and her incisions appear to be healing well without any bleeding or drainage. She was discharged home in stable and improved condition. Status at Discharge Cognitive/behavioral status at discharge: Cognitive status discharge was normal Functional status at discharge: independent ambulation Overall status at discharge: patient is back to baseline Time Spent with Patient Time attestation: Total time spent providing and/or coordinating discharge services: Time spent: Less than 30 minutes Specific discharge activities: The patient is instructed not to lift anything more than 10 or 15 lb for the next 2 weeks. She may shower but was instructed to not soak her incisions under water for the next 2 weeks. She is to continue all her home medications. She only wants Tylenol at home for pain and so she will not be given a prescription for narcotics at time of discharge. Exam Narrative: Abdomen soft and nondistended. Expected mild tenderness at the port sites. Port sites are dry and without drainage with minimal ecchymosis is noted around the port sites. The abdomen is benign. DS: Data Data Completed and Pending Pending studies at discharge: Pending at discharge 10/22/22 15:24 Surgical [PTH] Routine Procedures/Treatments: status post laparoscopic appendectomy Discharge Plan Discharge Attending physician on discharge: Fermin Lopez Discharging Clinician: Fermin Lopez Anticipated Discharge Date/Time: 10/23/22 10:21 Patient Disposition: Home, Self-Care Activity: may shower Diet: regular Wound Care Instructions: incision open to air Discharge Instructions: Patient is to refrain from driving for least 3 days. She may shower but not soak her incisions under water for 2 weeks. She is to remain off work for the next 2 weeks until she is seen in my office. Patient Instructions: Antibiotic Form, How to Stop Smoking (DC), Electronic Cigarettes and Your Health (GEN) Stand Alone Forms: General Discharge Information Follow-up/Referrals: Fermin Lopez MD [Physician] - ( Call for appointment to be seen in 2 weeks. Call [phone] for an appointment) Discharge Medications: Continued Mirena 20 mcg/24 hours (8 yrs) 52 mg intrauterine device 1 device intrauterine ONCE Rx Instructions: as a single dose melatonin 5 mg tablet 10 mg PO PRN PRN (Reason: Insomnia) citalopram 20 mg tablet 60 mg PO DAILY lithium carbonate 300 mg tablet extended release 600 mg PO .QHS Ubrelvy 50 mg tablet See Rx Instructions .ROUTE .COMPLEX PRN (Reason: Migraine Headache) Rx Instructions:
[2022-10-23 10:39] VITALS: BP 108/62; PULSE 61; RESP 14; TEMP 36.9; O2SAT 96
== END 2022-10-23 12:30 | disposition home or self-care (01) ==
LOC: ANHED 10-22 03:59 → ANH3MED 10-22 05:10
PROVIDERS: Physician Assistant; Admitting Provider Surgery; Emergency Provider General Practice; PCP Family Medicine; Visit Provider Surgery
PROC: 0DTJ4ZZ Resection of Appendix, Percutaneous Endoscopic Approach (ICD-10-PCS; CPT 44970; principal; 2022-10-22 14:30)
DX: K35.80 Unspecified acute appendicitis (principal); N20.0 Calculus of kidney; R10.10 Upper abdominal pain, unspecified; R19.7 Diarrhea, unspecified; R94.31 Abnormal electrocardiogram [ECG] [EKG]; G43.909 Migraine, unspecified, not intractable, without status migrainosus; F31.9 Bipolar disorder, unspecified; D72.829 Elevated white blood cell count, unspecified; Z20.822 Contact with and (suspected) exposure to COVID-19; I10 Essential (primary) hypertension; F17.290 Nicotine dependence, other tobacco product, uncomplicated; F12.11 Cannabis abuse, in remission; Z79.899 Other long term (current) drug therapy
CPT/HCPCS: 44970; 36415; 74177; 80053; 81001; 81025; 83690; 85025; 87636; 88304; 96361; 96365; 96366; 96375; 96376; 99285; A9270; G0378; J0131; J1100; J1170; J1956; J2250; J2370; J2405; J2704; J2710; J3010; J7030; J7042; J7120; Q9967

== ENCOUNTER 2022-11-03 12:25 | Outpatient (CLI) | payer BC, OTHER, SELFPAY ==
--- NOTE | ~2022-11-03 | CT_ITS ---
EXAMINATION: CT abdomen pelvis w con DATE: 11/03/2022 13:33 INDICATION: Right lower quadrant abdominal pain. TECHNIQUE: Computed tomography (CT) of the abdomen and pelvis was performed with 100 mL Omnipaque 350 intravenous contrast. Automated exposure control and iterative reconstruction technique were employe d. The dose-length product was 513.99 mGy-cm. COMPARISON: CT abdomen abdomen and pelvis 10/22/2022 FINDINGS: The visualized portions of the lung bases are clear without pneumonia or pleural effusion. The heart size is normal. No pericardial effusion. There is a 4 mm cyst in the liver. The gallbladder , spleen, pancreas, adrenal glands, and right kidney are normal. There is a 1 mm stone in left kidney . There is an intrauterine device in expected position. There are no dilated loops of bowel. There ar e changes of appendectomy. There are no pathologically enlarged lymph nodes. There is physiologic flu id in the pelvis. There is a 2.7 cm dominant follicle in right ovary. There are Schmorl's nodes of th e superior endplates of L2 and T11. IMPRESSION: 1. No specific etiology for the patient's symptoms. Reviewed, dictated and finalized at location A. [employer]
[2022-11-03 13:04] LABS: Uric Acid 5.5 mg/dL (2.5-7.5)
[2022-11-03 13:05] LABS: Lithium 0.6 mmol/L (0.6-1.2)
[2022-11-03 13:06] LABS: Rheumatoid Factor < 8.6 IU/ML (<12)
[2022-11-03 13:16] LABS: Erythrocyte Sedimentation Rate 3 mm/hr (0-20)
[2022-11-03 13:36] LABS: Total Triiodothyronine (T3) 1.37 NG/ML (0.97-1.69)
== END 2022-11-03 12:26 | disposition home or self-care (01) ==
PROVIDERS: PCP Family Medicine; Referring Provider Surgery; Visit Provider Nurse Practitioner Gerontology
DX: R10.31 Right lower quadrant pain (principal); M25.50 Pain in unspecified joint; R07.9 Chest pain, unspecified; R23.3 Spontaneous ecchymoses; R94.31 Abnormal electrocardiogram [ECG] [EKG]; Z79.899 Other long term (current) drug therapy
CPT/HCPCS: 36415; 74177; 80178; 84480; 84550; 85652; 86038; 86039; 86430; Q9967

== ENCOUNTER 2022-11-17 15:53 | Outpatient (CLI) | payer BC, OTHER, SELFPAY ==
[2022-11-17 16:21] LABS: Basophils Percent Auto 0.4 % (0.2-1.2); Eosinophils Absolute Auto 0.1 K/mm3 (0-0.3); Hematocrit 41.4 % (37.0-47.0); Hemoglobin 13.8 g/dL (12.0-15.0); Immature Granulocyte Absolute 0.01 K/mm3 (0.00-0.031); Immature Granulocyte Percent A 0.1 % (0-0.5); Lymphocytes Absolute Auto 2.65 K/mm3 (0.9-3.2); Lymphocytes Percent Auto 37.7 % (18.3-44.2); Mean Corpuscular HGB Conc 33.3 g/dl (32-36); Mean Corpuscular Hemoglobin 30.3 pg (26-34); Mean Platelet Volume 9.2 fl (7.4-10.4); Monocytes Absolute Auto 0.7 K/mm3 (0.1-0.6); Monocytes Percent Auto 9.4 % (2.6-8.5); Neutrophils Absolute Auto 3.5 K/mm3 (1.3-6.7); Neutrophils Percent Auto 50.4 % (45.5-73.1); Platelet Count Result 299 k/mm3 (150-375); Red Blood Count 4.55 M/mm3 (4.2-5.4); Red Cell Distribution Width 12.2 % (11.5-14.5)
[2022-11-17 16:39] LABS: Alanine Aminotransferase 14 U/L (6-35); Alkaline Phosphatase 65 U/L (38-126); Anion Gap 5 mmol/L (8-16); Aspartate Amino Transferase 20 U/L (14-36); Bilirubin,Total 0.4 mg/dL (0.2-1.3); Blood Urea Nitrogen 9 mg/dL (7-17); Calcium 8.3 mg/dL (8.4-10.2); Carbon Dioxide 25 mmol/L (22-30); Chloride 109 mmol/L (98-107); Estimated Glomerular Filt Rate > 60; Glucose 89 mg/dL (65-110); Potassium 3.8 mmol/L (3.4-5.0); Sodium 139 mmol/L (137-145)
== END 2022-11-17 15:54 | disposition home or self-care (01) ==
LOC: ANHLAB 15:55
PROVIDERS: PCP Family Medicine; Visit Provider Nurse Practitioner Gerontology
DX: R10.9 Unspecified abdominal pain (principal)
CPT/HCPCS: 36415; 80053; 85025

== ENCOUNTER 2022-11-29 14:04 | Outpatient (CLI) | payer BC, OTHER, SELFPAY ==
--- NOTE | ~2022-11-29 | XR_ITS ---
XR abdomen/kub 1V 11/29/2022 14:31 INDICATION: Right-sided abdominal pain TECHNIQUE: KUB COMPARISON: No prior studies for comparison. FINDINGS: Bowel gas pattern is normal. There is no evidence of free air, mass, organomegaly, ascites or obstruction. No abnormal calculi are seen. The bones appear intact. There is an IUD in the pelv is. IMPRESSION: 1: No acute abdominal abnormality identified. Reviewed, dictated and finalized at location B. [employer]
[2022-11-29 14:34] LABS: Basophils Percent Auto 0.4 % (0.2-1.2); Eosinophils Absolute Auto 0.2 K/mm3 (0-0.3); Eosinophils Percent Auto 1.7 % (0-4.4); Hematocrit 43.7 % (37.0-47.0); Hemoglobin 14.5 g/dL (12.0-15.0); Immature Granulocyte Absolute 0.04 K/mm3 (0.00-0.031); Immature Granulocyte Percent A 0.4 % (0-0.5); Lymphocytes Absolute Auto 2.65 K/mm3 (0.9-3.2); Lymphocytes Percent Auto 25.7 % (18.3-44.2); Mean Corpuscular HGB Conc 33.2 g/dl (32-36); Mean Corpuscular Volume 90.3 fl (80-100); Mean Platelet Volume 8.8 fl (7.4-10.4); Monocytes Absolute Auto 0.9 K/mm3 (0.1-0.6); Monocytes Percent Auto 8.6 % (2.6-8.5); Neutrophils Absolute Auto 6.5 K/mm3 (1.3-6.7); Neutrophils Percent Auto 63.2 % (45.5-73.1); Platelet Count Result 312 k/mm3 (150-375); Red Blood Count 4.84 M/mm3 (4.2-5.4); Red Cell Distribution Width 12.3 % (11.5-14.5); White Blood Count 10.3 K/mm3 (4.5-10.0)
[2022-11-29 14:38] LABS: Alanine Aminotransferase 14 U/L (6-35); Albumin Level 4.6 g/dL (3.5-5.1); Alkaline Phosphatase 76 U/L (38-126); Amylase 94 U/L (30-110); Anion Gap 5 mmol/L (8-16); Aspartate Amino Transferase 22 U/L (14-36); Bilirubin,Total 0.5 mg/dL (0.2-1.3); Blood Urea Nitrogen 7 mg/dL (7-17); Calcium 8.9 mg/dL (8.4-10.2); Carbon Dioxide 27 mmol/L (22-30); Chloride 103 mmol/L (98-107); Estimated Glomerular Filt Rate > 60; Glucose 79 mg/dL (65-110); Lipase 143 U/L (23-300); Potassium 3.9 mmol/L (3.4-5.0); Sodium 135 mmol/L (137-145)
[2022-12-02 10:51] LABS: CRP, High Sensitivity <0.3 mg/L (***)
== END 2022-11-29 14:05 | disposition home or self-care (01) ==
PROVIDERS: PCP Family Medicine; Visit Provider Nurse Practitioner Gerontology
DX: R10.9 Unspecified abdominal pain (principal); R50.9 Fever, unspecified; R53.83 Other fatigue
CPT/HCPCS: 36415; 74018; 80053; 82150; 83690; 85025; 86141

== ENCOUNTER 2022-12-07 01:59 | Emergency (ER) | payer BC, OTHER, SELFPAY ==
[2022-12-07 02:01] VITALS: BP 116/72; PULSE 71; RESP 20; TEMP 36.1; O2SAT 98
[2022-12-07 02:15] VITALS: O2SAT 100
[2022-12-07 02:16] VITALS: BP 107/76; PULSE 82; RESP 12; O2SAT 100
--- NOTE | 2022-12-07 02:19 | ED.ALLEREA ---
HPI - Allergic Reaction General Chief complaint: Allergic Reaction Stated complaint: allergic reaction Time Seen by Provider: 12/07/22 02:14 History of Present Illness HPI narrative: 22-year-old female with a history of bipolar disorder and chronic migraines reports for an allergic reaction after starting Keflex today. Patient states her primary care prescribed Keflex due to a high white count. Patient states she took her first dose of Keflex around 9 PM and developed symptoms at midnight. Reported symptoms include hives across her chest and back, shortness of breath, sensation that her throat is closing . She denies cough, wheezing, fever, body aches, chills, or tongue lip swelling, nausea, vomiting, focal numbness or weakness. Patient reports she is allergic to multiple antibiotics. Reports she does not have an EpiPen. Patient is currently being worked up by multiple specialists for abdominal pain including rheumatology. She reports she is waiting to hear back from GI to schedule an appointment for evaluation. States her primary care started her on Keflex for a multitude of symptoms including abdominal pain with elevated white blood cell count. Related Data Home Medications Medication Instructions Recorded Confirmed melatonin 5 mg tablet 10 mg PO PRN PRN Insomnia 03/14/20 11/29/22 citalopram 20 mg tablet 60 mg PO DAILY 02/08/22 11/29/22 lithium carbonate 300 mg 600 mg PO .QHS 02/08/22 11/29/22 tablet,extended release levonorgestrel 21 mcg/24 hours (8 1 device intrauterine ONCE 09/10/22 11/29/22 yrs) 52 mg intrauterine device (Mirena) ubrogepant 50 mg tablet (Ubrelvy) See Rx Instructions .Route 10/22/22 11/29/22 .COMPLEX PRN Migraine Headache Allergies Allergy/AdvReac Type Severity Reaction Status Date / Time amoxicillin Allergy Unknown Hives Verified 11/29/22 13:38 lamotrigine Allergy Unknown Hives Verified 11/29/22 13:38 Sulfa (Sulfonamide Allergy Unknown Unknown Verified 11/29/22 13:38 Antibiotics) sulfamethizole Allergy Unknown Hives Verified 11/29/22 13:38 sulfamethoxazole Allergy Unknown Unknown Verified 11/29/22 13:38 trimethoprim Allergy Unknown Hives Verified 11/29/22 13:38 ketorolac AdvReac CAUSED Verified 11/29/22 13:38 LITHIUM LEVEL TO BE TOXIC Review of Systems Review of Systems: CONSTITUTIONAL: Denies fever, chills EYES: Denies visual changes, redness, or discharge. ENT: Denies rhinorrhea, congestion, sore throat, or otalgia. CARDIOVASCULAR: Denies chest pain, palpitations, or edema. RESPIRATORY: Denies cough or dyspnea. GASTROINTESTINAL: Denies nausea, vomiting, or diarrhea. GENITOURINARY: Denies dysuria or hematuria. SKIN: See HPI MUSCULOSKELETAL: Denies back pain, joint pain, or myalgia. NEUROLOGIC: Denies headache, numbness, dizziness, or weakness. PSYCHIATRIC: Denies anxiety or depression. [facility] Past Medical History Medical History Abnormal EKG Bipolar disorder in partial remission Chronic migraine Surgical History Surgical History History of laparoscopic appendectomy 10/22/[address] Lopez. No pertinent past surgical history Family History Family History Father Depression Heart disease Hypertension Social History Social History Social History: Single Smoking status: Current every day smoker Tobacco type: e-cigarettes/vaping Second hand tobacco smoke exposure: Yes Alcohol intake: never Substance use: never Substance use type: marijuana Last use: 3mo ago Lack of Transportation: No Lack of Food: Never True Current Housing: I Have Housing Concerned About Future Housing: No Difficulty Paying Gas/Electric Bills: No Difficulty Paying for Meds: No Currently Unemployed: No Education: High School Diplo
[2022-12-07] MEDS: methylPREDNISolone SOD SUCC 125 MG VIAL IV PUSH (02:30)
[2022-12-07] MEDS: SODIUM CHLORIDE 0.9% IV 1,000 ML 999 ML IV CONT (02:30)
[2022-12-07] MEDS: FAMOTIDINE 20 MG/2 ML VIAL IV PUSH (02:30)
[2022-12-07] MEDS: diphenhydrAMINE HCl INJ 50 MG/ML VIAL IV PUSH (02:30)
--- NOTE | 2022-12-07 02:58 | PC.NURSE ---
Pt states s/s have improved since medication administration
[2022-12-07 03:36] VITALS: PULSE 72; RESP 18; O2SAT 99
--- NOTE | 2022-12-15 12:52 | PC.NURSE ---
LATE ENTRY This note is being entered to document information to the patient's record. The following information was omitted on [12/07/22], by [Barbara Meng RN]. NS stopped at 0330am
== END 2022-12-07 03:45 | disposition home or self-care (01) ==
PROVIDERS: Emergency Provider Physician Assistant; PCP Family Medicine
DX: L50.0 Allergic urticaria (principal); T36.1X5A Adverse effect of cephalosporins and other beta-lactam antibiotics, initial encounter; R06.02 Shortness of breath; F31.9 Bipolar disorder, unspecified; G43.909 Migraine, unspecified, not intractable, without status migrainosus; F17.290 Nicotine dependence, other tobacco product, uncomplicated
CPT/HCPCS: 96361; 96374; 96375; 99284; J1200; J2930; J7030

== ENCOUNTER 2022-12-07 14:10 | Outpatient (CLI) | payer BC, OTHER, SELFPAY ==
--- NOTE | ~2022-12-07 | XR_ITS ---
EXAM: XR lumbar spine min 4V DATE: 12/07/2022 14:38 HISTORY: M25.559 - Pain in unspecified hip . COMPARISON: CT abdomen and pelvis 11/03/2022, x-ray right hip 12/07/2022. FINDINGS: 5 nonrib-bearing lumbar-type vertebral bodies. Partial sacralization of L5 on the right. T 12 Schmorl's node. Limbus vertebra at L2. Pedicles intact. Normal vertebral body alignment. Vertebral body heights preserved. Mild disc space narrowing at at L1-2, and moderate disc space narrowing at L 5-S1. Normal facets and posterior elements. No pars defect. No fracture or dislocation. IUD over the pelvis. IMPRESSION: Mild degenerative disc disease at L1-2. Moderate degenerative disc disease at L5-S1. Reviewed, dictated and finalized at location K. [employer]
--- NOTE | ~2022-12-07 | XR_ITS ---
XR hip RT min 2V 12/07/2022 14:38 Indication: Right hip pain Procedure: 2 views right hip Comparison: No prior studies for comparison. Findings: No fracture, subluxation or dislocation. No significant soft tissue abnormality. No foreign bodies. There is an IUD in the pelvis. Impression: 1: No significant bone or joint abnormality. Reviewed, dictated and finalized at location L. [facility]CHER Impression: 1: No significant bone or joint abnormality.
== END 2022-12-07 14:11 | disposition home or self-care (01) ==
PROVIDERS: PCP Family Medicine; Visit Provider Nurse Practitioner Gerontology
DX: M25.551 Pain in right hip (principal); M51.36 Other intervertebral disc degeneration, lumbar region; M51.37 Other intervertebral disc degeneration, lumbosacral region
CPT/HCPCS: 72110; 73502

== ENCOUNTER 2022-12-11 08:36 | Emergency (ER) | payer BC, OTHER, SELFPAY ==
[2022-12-11 08:44] VITALS: BP 122/76; PULSE 72; RESP 18; TEMP 37.2; O2SAT 100
--- NOTE | 2022-12-11 08:56 | PC.NURSE ---
pt walked up to intake desk stating she feels much better and will see her doctor on Tuesday
== END 2022-12-11 08:56 | disposition left against medical advice (07) ==
PROVIDERS: PCP Family Medicine
DX: R10.9 Unspecified abdominal pain (principal)
CPT/HCPCS: 99199

== ENCOUNTER 2023-01-18 01:32 | Day surgery (SDC) | payer BC, OTHER, SELFPAY ==
[2023-01-06 16:06] VITALS: BMI 28.2
[2023-01-18 13:16] VITALS: BP 104/60; PULSE 81; RESP 16; TEMP 36.4; O2SAT 100
--- NOTE | 2023-01-18 13:23 | WPDANESEPPF ---
Anes - Initial Pre Proc Eval Procedure: Operation Date: 01/18/23 14:30 Proposed Procedures p Esophagogastroduodenoscopy & Colonoscopy - Juanjo Patel MD Date/Time: 01/18/23 13:23 Surgeon: Juanjo Patel MD Pre Op Diagnosis: change in stool, nausea, abdom.pain Patient Data Age: 22 Gender: F Height: 1.57 m Weight: 69.6 kg Last Vital Signs Temp 36.4 C 01/18/23 13:16 Pulse 81 01/18/23 13:16 Resp 16 01/18/23 13:16 BP 104/60 01/18/23 13:16 Pulse Ox 100 01/18/23 13:16 O2 Del Method Room Air 01/18/23 13:16 Allergies Allergy/AdvReac Type Severity Reaction Status Date / Time Sulfa (Sulfonamide Allergy Severe Swelling Verified 01/18/23 13:15 Antibiotics) of Lip/Tongue/Throat sulfamethizole Allergy Severe Swelling Verified 01/18/23 13:15 of Lip/Tongue/Throat sulfamethoxazole Allergy Severe Swelling Verified 01/18/23 13:15 of Lip/Tongue/Throat trimethoprim Allergy Severe Swelling Verified 01/18/23 13:15 of Lip/Tongue/Throat amoxicillin Allergy Intermediate Hives Verified 01/18/23 13:15 lamotrigine Allergy Intermediate Hives Verified 01/18/23 13:15 ketorolac AdvReac Severe CAUSED Verified 01/18/23 13:15 LITHIUM LEVEL TO BE TOXIC keflex AdvReac Severe Anaphylaxis Uncoded 01/18/23 13:15 Home Medications Medication Instructions Recorded Confirmed Type melatonin 5 mg tablet 10 mg PO PRN PRN Insomnia 03/14/20 01/18/23 History citalopram 20 mg tablet 60 mg PO HS 02/08/22 01/18/23 History lithium carbonate 300 mg 600 mg PO .QHS 02/08/22 01/18/23 History tablet,extended release levonorgestrel 21 mcg/24 hours (8 1 device intrauterine ONCE 09/10/22 01/18/23 History yrs) 52 mg intrauterine device (Mirena) ubrogepant 50 mg tablet (Ubrelvy) 50 mg PO DIRECTED PRN Migraine 10/22/22 01/18/23 History Headache dicyclomine 20 mg tablet 20 mg PO TID PRN abdominal 12/30/22 01/18/23 Rx discomfort 1 month #90 tabs aspirin 81 mg tablet,delayed 81 mg PO DAILY 01/06/23 01/18/23 History release epinephrine 0.3 mg/0.3 mL 0.3 mg IM ONCE PRN Allergic 01/06/23 01/18/23 History injection, auto-injector (EpiPen Reaction 2-Emanuel) Patient hx anesthesia problems: none Family hx anesthesia problems: none Results Review: All pre-operative results and documents have been reviewed as part of the pre-operative evaluation. [facility] Past Medical History Medical History (Updated 01/02/23 @ 18:10 by Katiuska Hernandez, [employer]) Abnormal EKG Acute appendicitis Acute cystitis without hematuria Acute superficial gastritis without hemorrhage Adverse effect of drugs affecting uric acid metabolism, subsequent encounter Alternating constipation and diarrhea Bipolar 2 disorder Bipolar disorder in partial remission Change in bowel habits Chest pain, atypical Chronic cluster headache, not intractable Chronic migraine Chronic tension-type headache, not intractable Dysfunctional uterine bleeding Dysmenorrhea Encounter for surgical aftercare following surgery on the digestive system Fever Folliculitis due to Pseudomonas aeruginosa RICK (generalized anxiety disorder) Gastritis Hx of suicide attempt Low blood pressure MDD (major depressive disorder), recurrent episode, moderate Migraine aura without headache (migraine equivalents) Murmur Muscle twitching Nausea Nausea and vomiting Need for HPV vaccination Nipple discharge Pseudomonas (aeruginosa) (mallei) (pseudomallei) as the cause of diseases classified elsewhere Psychophysiological insomnia Sinusitis Subacute maxillary sinusitis Surgical History Surgical History History of laparoscopic appendectomy 10/22/[address] Lopez. No pertinent past surgical history S/P laparoscopic appendectomy Family History Family History Father Depression Heart disease Hypertension
[2023-01-18] MEDS: LACTATED RINGERS 1,000 ML 150 ML IV CONT (13:30)
--- NOTE | 2023-01-18 13:33 | WPDHPUPDATE1 ---
History and Physical Update Update Date/Time: 01/18/23 13:33 History and Physical has been reviewed, including an updated exam of the patient. There are NO changes in the patient's condition. Risks, benefits, and alternatives have been discussed and questions answered. Patient agrees to proceed with procedure.
--- NOTE | 2023-01-18 13:50 | SUR.OPER ---
EGD end 1345 COLONOSCOPY START 1353
[2023-01-18 14:00] VITALS: BP 148/96; PULSE 67; RESP 20; O2SAT 100
[2023-01-18 14:10] VITALS: BP 89/62; PULSE 72; RESP 20; O2SAT 100
[2023-01-18 14:20] VITALS: BP 100/56; PULSE 77; RESP 20; O2SAT 100
== END 2023-01-18 14:38 | disposition home or self-care (01) ==
PROVIDERS: PCP Family Medicine; Visit Provider Internal Medicine Gastroenterology
PROC: 0DJ08ZZ Inspection of Upper Intestinal Tract, Via Natural or Artificial Opening Endoscopic (ICD-10-PCS; CPT 43235; principal; 2023-01-18 14:30)
DX: R19.7 Diarrhea, unspecified (principal); K59.00 Constipation, unspecified; K63.5 Polyp of colon; K64.8 Other hemorrhoids; K29.50 Unspecified chronic gastritis without bleeding; F31.81 Bipolar II disorder; F41.1 Generalized anxiety disorder; F17.290 Nicotine dependence, other tobacco product, uncomplicated
CPT/HCPCS: 45385; 45380; 43239; 87081; 88305; J7120

== ENCOUNTER 2023-03-19 02:11 | Emergency (ER) | payer OTHER, SELFPAY ==
[2023-03-19 02:12] VITALS: BP 131/97; PULSE 106; RESP 20; TEMP 36.4; O2SAT 100
[2023-03-19] MEDS: methylPREDNISolone SOD SUCC 125 MG VIAL IM (02:47)
[2023-03-19] MEDS: FAMOTIDINE 20 MG TABLET PO (02:47)
--- NOTE | 2023-03-19 02:54 | ED.GENADULT ---
HPI - General Adult General Chief complaint: Allergic Reaction Stated complaint: allergic reaction Time Seen by Provider: 03/19/23 02:15 History of Present Illness HPI narrative: Patient is a 22-year-old female who presents the emergency department with chief complaint of allergic reaction. The patient states she started taking charcoal capsules and today felt as though her throat was closing patient reports that she had multiple allergic reactions before in the past and reports that she has issues with oral Benadryl but she is able to take either IV or IM Benadryl. Patient reports that she had no urticaria reports no itching reports feels similar to whenever she had allergic reactions in the past. Related Data Home Medications Medication Instructions Recorded Confirmed melatonin 5 mg tablet 10 mg PO PRN PRN Insomnia 03/14/20 03/15/23 citalopram 20 mg tablet 60 mg PO HS 02/08/22 03/15/23 lithium carbonate 300 mg 600 mg PO .QHS 02/08/22 03/15/23 tablet,extended release levonorgestrel 21 mcg/24 hours (8 1 device intrauterine ONCE 09/10/22 03/15/23 yrs) 52 mg intrauterine device (Mirena) ubrogepant 50 mg tablet (Ubrelvy) 50 mg PO DIRECTED PRN Migraine 10/22/22 03/15/23 Headache aspirin 81 mg tablet,delayed 81 mg PO DAILY 01/06/23 03/15/23 release epinephrine 0.3 mg/0.3 mL 0.3 mg IM ONCE PRN Allergic 01/06/23 03/15/23 injection, auto-injector (EpiPen Reaction 2-Emanuel) Allergies Allergy/AdvReac Type Severity Reaction Status Date / Time Sulfa (Sulfonamide Allergy Severe Swelling Verified 03/19/23 02:16 Antibiotics) of Lip/Tongue/Throat sulfamethizole Allergy Severe Swelling Verified 03/19/23 02:16 of Lip/Tongue/Throat sulfamethoxazole Allergy Severe Swelling Verified 03/19/23 02:16 of Lip/Tongue/Throat trimethoprim Allergy Severe Swelling Verified 03/19/23 02:16 of Lip/Tongue/Throat amoxicillin Allergy Intermediate Hives Verified 03/19/23 02:16 lamotrigine Allergy Intermediate Hives Verified 03/19/23 02:16 ketorolac AdvReac Severe CAUSED Verified 03/19/23 02:16 LITHIUM LEVEL TO BE TOXIC diphenhydramine AdvReac Anxiety Verified 03/19/23 02:16 [From Benadryl] keflex AdvReac Severe Anaphylaxis Uncoded 03/15/23 14:04 Review of Systems Review of Systems: A 10 system review of systems was completed on the patient and is negative except for what is stated in the HPI. Nursing and ancillary documentation was reviewed. [facility] Past Medical History Medical History Abnormal EKG Acute appendicitis Acute cystitis without hematuria Acute superficial gastritis without hemorrhage Adverse effect of drugs affecting uric acid metabolism, subsequent encounter Alternating constipation and diarrhea Bipolar 2 disorder Bipolar disorder in partial remission Change in bowel habits Chest pain, atypical Chronic cluster headache, not intractable Chronic migraine Chronic tension-type headache, not intractable Dysfunctional uterine bleeding Dysmenorrhea Encounter for surgical aftercare following surgery on the digestive system Fever Folliculitis due to Pseudomonas aeruginosa RICK (generalized anxiety disorder) Gastritis Hx of suicide attempt Low blood pressure MDD (major depressive disorder), recurrent episode, moderate Migraine aura without headache (migraine equivalents) Murmur Muscle twitching Nausea Nausea and vomiting Need for HPV vaccination Nipple discharge Pseudomonas (aeruginosa) (mallei) (pseudomallei) as the cause of diseases classified elsewhere Psychophysiological insomnia Sinusitis Subacute maxillary sinusitis Surgical History Surgical History History of laparoscopic appendectomy 10/22/[address] Lopez. No pertinent past surgical history S/P laparoscopic appendectomy Family History Family History (Reviewed 03/19/23
[2023-03-19] MEDS: diphenhydrAMINE HCl INJ 50 MG/ML VIAL IM (03:35)
[2023-03-19 03:54] VITALS: BP 104/79; PULSE 66; RESP 15; O2SAT 100
== END 2023-03-19 03:56 | disposition home or self-care (01) ==
PROVIDERS: Emergency Provider Emergency Medicine; PCP Family Medicine
DX: T78.40XA Allergy, unspecified, initial encounter (principal); F31.81 Bipolar II disorder; F41.1 Generalized anxiety disorder; F17.290 Nicotine dependence, other tobacco product, uncomplicated; F12.90 Cannabis use, unspecified, uncomplicated; Z79.82 Long term (current) use of aspirin
CPT/HCPCS: 96372; 99284; A9270; J1200; J2930

== ENCOUNTER 2023-04-15 14:36 | Outpatient (CLI) | payer OTHER, SELFPAY ==
[2023-04-15 15:17] LABS: Basophils Percent Auto 0.4 % (0.2-1.2); Eosinophils Absolute Auto 0.2 K/mm3 (0-0.3); Eosinophils Percent Auto 3.4 % (0-4.4); Hemoglobin 14.6 g/dL (12.0-15.0); Immature Granulocyte Absolute 0.02 K/mm3 (0.00-0.031); Immature Granulocyte Percent A 0.3 % (0-0.5); Lymphocytes Absolute Auto 2.38 K/mm3 (0.9-3.2); Lymphocytes Percent Auto 35.3 % (18.3-44.2); Mean Corpuscular Hemoglobin 30.2 pg (26-34); Mean Corpuscular Volume 88.8 fl (80-100); Mean Platelet Volume 8.7 fl (7.4-10.4); Monocytes Absolute Auto 0.6 K/mm3 (0.1-0.6); Monocytes Percent Auto 8.8 % (2.6-8.5); Neutrophils Absolute Auto 3.5 K/mm3 (1.3-6.7); Neutrophils Percent Auto 51.8 % (45.5-73.1); Platelet Count Result 350 k/mm3 (150-375); Red Blood Count 4.84 M/mm3 (4.2-5.4); Red Cell Distribution Width 11.9 % (11.5-14.5); White Blood Count 6.7 K/mm3 (4.5-10.0)
[2023-04-15 15:30] LABS: Alanine Aminotransferase 22 U/L (6-35); Albumin Level 4.7 g/dL (3.5-5.1); Alkaline Phosphatase 76 U/L (38-126); Anion Gap 8 mmol/L (8-16); Aspartate Amino Transferase 26 U/L (14-36); Bilirubin,Total 0.6 mg/dL (0.2-1.3); Blood Urea Nitrogen 9 mg/dL (7-17); CRP < 0.5 mg/dL (<1.0); Carbon Dioxide 26 mmol/L (22-30); Chloride 104 mmol/L (98-107); Estimated Glomerular Filt Rate > 60; Glucose 88 mg/dL (65-110); Sodium 138 mmol/L (137-145)
[2023-04-15 15:57] LABS: Total Triiodothyronine (T3) 1.15 NG/ML (0.97-1.69)
[2023-04-15 16:42] LABS: Free T4 Free Thyroxine 0.72 ng/mL (0.78-2.19)
[2023-04-19 04:44] LABS: Anti Streptolysin O Screen <50 IU/mL (<200)
[2023-04-19 14:38] LABS: Prolactin 10.6 ng/mL (***)
== END 2023-04-15 14:37 | disposition home or self-care (01) ==
LOC: ANHLAB 14:37
PROVIDERS: PCP Family Medicine; Visit Provider Nurse Practitioner Gerontology
DX: M25.50 Pain in unspecified joint (principal); R07.9 Chest pain, unspecified; R25.3 Fasciculation; R94.31 Abnormal electrocardiogram [ECG] [EKG]; Z79.899 Other long term (current) drug therapy; R51.9 Headache, unspecified; N64.52 Nipple discharge
CPT/HCPCS: 36415; 80053; 84146; 84439; 84443; 84480; 85025; 86060; 86140

== ENCOUNTER 2023-05-03 03:52 | Emergency (ER) | payer OTHER, SELFPAY ==
--- NOTE | ~2023-05-03 | CT_ITS ---
CT of the Abdomen and Pelvis: Indication: Abdominal pain Technique: 2.5 mm axial scans were obtained through the abdomen and pelvis following intravenous adm inistration of 100 cc of Omnipaque 350. Dose reduction technique was used on this scan by utilizing a utomated exposure control and iterative reconstruction technique. The dose-length product (DLP) was 5 45.94 mGy-cm. COMPARISON: 11/03/2022 Findings: Scans through the lung bases are unremarkable. The liver, spleen, pancreas, gallbladder, adrenals and kidneys are within normal limits. There is mil d enhancement of the urothelium of the bilateral ureters, especially proximally. No evidence of aorti c aneurysm. No lymphadenopathy. No bowel obstruction or bowel wall thickening. There is no evidence to suggest acute appendicitis. Images through the pelvis were performed. Urinary bladder unremarkable. No adnexal mass seen. No asci blayne. IUD in place. Impression: Mild urothelial enhancement of the proximal ureters. Correlate with urinalysis for UTI. No definite C T evidence of pyelonephritis or cystitis otherwise. Reviewed, dictated and finalized at location M. Impression: Mild urothelial enhancement of the proximal ureters. Correlate with urinalysis for UTI. No definite CT evidence of pyelonephritis or cystitis otherwise.
[2023-05-03 03:53] VITALS: BP 114/74; PULSE 80; RESP 18; TEMP 36.3; O2SAT 100
[2023-05-03 04:24] LABS: Basophils Absolute Auto 0.1 K/mm3 (0.0-0.1); Basophils Percent Auto 0.3 % (0.2-1.2); Eosinophils Absolute Auto 0.3 K/mm3 (0-0.3); Eosinophils Percent Auto 2.2 % (0-4.4); Hematocrit 41.8 % (37.0-47.0); Hemoglobin 13.9 g/dL (12.0-15.0); Immature Granulocyte Absolute 0.06 K/mm3 (0.00-0.031); Immature Granulocyte Percent A 0.4 % (0-0.5); Lymphocytes Absolute Auto 2.96 K/mm3 (0.9-3.2); Lymphocytes Percent Auto 19.2 % (18.3-44.2); Mean Corpuscular HGB Conc 33.3 g/dl (32-36); Mean Corpuscular Volume 90.1 fl (80-100); Mean Platelet Volume 8.5 fl (7.4-10.4); Monocytes Absolute Auto 1.4 K/mm3 (0.1-0.6); Monocytes Percent Auto 8.7 % (2.6-8.5); Neutrophils Absolute Auto 10.7 K/mm3 (1.3-6.7); Neutrophils Percent Auto 69.2 % (45.5-73.1); Platelet Count Result 296 k/mm3 (150-375); Red Blood Count 4.64 M/mm3 (4.2-5.4); Red Cell Distribution Width 12.2 % (11.5-14.5); White Blood Count 15.4 K/mm3 (4.5-10.0)
--- NOTE | 2023-05-03 04:30 | ED.ABDPAIN ---
HPI - Abdominal Pain General Chief Complaint: Abdominal Pain Stated Complaint: RUQ abd pain, Time Seen by Provider: 05/03/23 04:08 History of Present Illness HPI narrative: This is a 22-year-old female, with past medical history of bipolar disorder and appendicitis status post appendectomy, who presents to the emergency department complaining of right upper quadrant and flank pain for the past 3 hours. The patient states she woke from sleep with sharp, 8/10 right upper quadrant abdominal pain, radiating to the flank. This is associated with nonbloody vomiting and nausea. It was exacerbated by quick movement or direct pressure and alleviated with rest. Related Data Home Medications Medication Instructions Recorded Confirmed melatonin 5 mg tablet 10 mg PO PRN PRN Insomnia 03/14/20 03/15/23 citalopram 20 mg tablet 60 mg PO HS 02/08/22 03/15/23 lithium carbonate 300 mg 600 mg PO .QHS 02/08/22 03/15/23 tablet,extended release levonorgestrel 21 mcg/24 hours (8 1 device intrauterine ONCE 09/10/22 03/15/23 yrs) 52 mg intrauterine device (Mirena) ubrogepant 50 mg tablet (Ubrelvy) 50 mg PO DIRECTED PRN Migraine 10/22/22 03/15/23 Headache aspirin 81 mg tablet,delayed 81 mg PO DAILY 01/06/23 03/15/23 release epinephrine 0.3 mg/0.3 mL 0.3 mg IM ONCE PRN Allergic 01/06/23 03/15/23 injection, auto-injector (EpiPen Reaction 2-Emanuel) Allergies Allergy/AdvReac Type Severity Reaction Status Date / Time Sulfa (Sulfonamide Allergy Severe Swelling Verified 04/15/23 14:06 Antibiotics) of Lip/Tongue/Throat sulfamethizole Allergy Severe Swelling Verified 04/15/23 14:06 of Lip/Tongue/Throat sulfamethoxazole Allergy Severe Swelling Verified 04/15/23 14:06 of Lip/Tongue/Throat trimethoprim Allergy Severe Swelling Verified 04/15/23 14:06 of Lip/Tongue/Throat amoxicillin Allergy Intermediate Hives Verified 04/15/23 14:06 lamotrigine Allergy Intermediate Hives Verified 04/15/23 14:06 ketorolac AdvReac Severe CAUSED Verified 04/15/23 14:06 LITHIUM LEVEL TO BE TOXIC diphenhydramine AdvReac Anxiety Verified 04/15/23 14:06 [From Benadryl] keflex AdvReac Severe Anaphylaxis Uncoded 04/15/23 14:06 Review of Systems Review of Systems: CONSTITUTIONAL: Denies fever, chills, or sweats. CARDIOVASCULAR: Denies chest pain, palpitations, or edema. RESPIRATORY: Denies cough or dyspnea. GASTROINTESTINAL: Right upper quadrant abdominal pain, right flank pain, nausea and vomiting, denies or diarrhea. GENITOURINARY: Dysuria denies hematuria. SKIN: Denies rash or itching. MUSCULOSKELETAL: Denies back pain, joint pain, or myalgia. NEUROLOGIC: Denies headache, numbness, dizziness, or weakness. PSYCHIATRIC: Denies anxiety or depression. [facility] Past Medical History Medical History Abnormal EKG Acute appendicitis Acute cystitis without hematuria Acute superficial gastritis without hemorrhage Adverse effect of drugs affecting uric acid metabolism, subsequent encounter Alternating constipation and diarrhea Bipolar 2 disorder Bipolar disorder in partial remission Change in bowel habits Chest pain, atypical Chronic cluster headache, not intractable Chronic migraine Chronic tension-type headache, not intractable Dysfunctional uterine bleeding Dysmenorrhea Encounter for surgical aftercare following surgery on the digestive system Fever Folliculitis due to Pseudomonas aeruginosa RICK (generalized anxiety disorder) Gastritis Hx of suicide attempt Low blood pressure MDD (major depressive disorder), recurrent episode, moderate Migraine aura without headache (migraine equivalents) Murmur Muscle twitching Nausea Nausea and vomiting Need for HPV vaccination Nipple discharge Pseudomonas (aeruginosa) (mallei) (pseudomallei) as the cause of diseases classified elsewhere Psychophysiological insomnia Sinusitis Subacute maxillary sinusitis
[2023-05-03 04:31] LABS: Appearance Urine Cloudy (Clear); Bacteria Urine Rare /hpf; Bilirubin Urine Negative (Negative); Blood Urine 3+ (Negative); Color Urine Yellow (Yellow); Glucose Urine UA Negative (Negative); Ketones Urine Negative (Negative); Leukocyte Esterase Ur 3+ LEU/UL (Negative); Nitrate Urine Negative (Negative); Non Pathogenic Casts 0-2; Protein Urine 1+ mg/dL (Negative); RBC Urine >100 /hpf (0-2); Specific Grav Ur 1.008 (1.001-1.035); Squamous Epithelial Cell Urine None seen /hpf (Few); Urobilinogen Urine 0.2 mg/dL (<2.0); WBC Urine >100 /hpf
[2023-05-03 04:34] LABS: Alanine Aminotransferase 17 U/L (6-35); Albumin Level 4.3 g/dL (3.5-5.1); Alkaline Phosphatase 67 U/L (38-126); Anion Gap 10 mmol/L (8-16); Aspartate Amino Transferase 22 U/L (14-36); Bilirubin,Total 0.4 mg/dL (0.2-1.3); Blood Urea Nitrogen 12 mg/dL (7-17); Calcium 8.9 mg/dL (8.4-10.2); Carbon Dioxide 26 mmol/L (22-30); Chloride 103 mmol/L (98-107); Estimated CRCL calculation 79 ml/min; Estimated Glomerular Filt Rate > 60; Glucose 93 mg/dL (65-110); Lipase 197 U/L (23-300); Potassium 3.6 mmol/L (3.4-5.0); Sodium 139 mmol/L (137-145)
[2023-05-03 04:38] LABS: Add Urine Microscopic? YES
[2023-05-03] MEDS: SODIUM CHLORIDE 0.9% IV 2,000 ML 999 ML IV CONT (05:02)
[2023-05-03] MEDS: ONDANSETRON INJ 4 MG/2 ML VIAL IV PUSH (05:03)
[2023-05-03] MEDS: MORPHINE SULFATE (*CRX) 4 MG/ML INJ IV PUSH (05:03)
[2023-05-03 05:51] LABS: Lithium 0.6 mmol/L (0.6-1.2)
[2023-05-03] MEDS: oxyCODONE/ACETAMINOPHEN (*CRX) 5-325 MG TABLET 1 TABLET PO (06:44)
== END 2023-05-03 06:48 | disposition home or self-care (01) ==
PROVIDERS: Emergency Provider Preventive Medicine Aerospace Medicine; PCP Family Medicine
DX: N12 Tubulo-interstitial nephritis, not specified as acute or chronic (principal); F31.81 Bipolar II disorder; F41.1 Generalized anxiety disorder; F17.290 Nicotine dependence, other tobacco product, uncomplicated; Z79.82 Long term (current) use of aspirin
CPT/HCPCS: 36415; 74177; 80053; 80178; 81001; 81025; 83690; 85025; 87077; 87086; 87186; 96361; 96374; 96375; 99284; A9270; J2270; J2405; J2704; J7030; Q9967

== ENCOUNTER 2023-05-07 20:18 | Emergency (ER) | payer OTHER, SELFPAY ==
[2023-05-07 20:46] VITALS: BP 116/78; PULSE 94; RESP 18; TEMP 36.5; O2SAT 98
[2023-05-07 21:05] LABS: Basophils Percent Auto 0.4 % (0.2-1.2); Eosinophils Absolute Auto 0.5 K/mm3 (0-0.3); Eosinophils Percent Auto 4.7 % (0-4.4); Hematocrit 41.2 % (37.0-47.0); Immature Granulocyte Absolute 0.02 K/mm3 (0.00-0.031); Immature Granulocyte Percent A 0.2 % (0-0.5); Lymphocytes Absolute Auto 2.57 K/mm3 (0.9-3.2); Mean Corpuscular Hemoglobin 30.2 pg (26-34); Mean Platelet Volume 8.5 fl (7.4-10.4); Monocytes Absolute Auto 0.7 K/mm3 (0.1-0.6); Monocytes Percent Auto 6.8 % (2.6-8.5); Neutrophils Absolute Auto 6.1 K/mm3 (1.3-6.7); Neutrophils Percent Auto 61.9 % (45.5-73.1); Platelet Count Result 330 k/mm3 (150-375); Red Blood Count 4.63 M/mm3 (4.2-5.4); Red Cell Distribution Width 12.1 % (11.5-14.5); White Blood Count 9.9 K/mm3 (4.5-10.0)
[2023-05-07 21:08] LABS: Appearance Urine Clear (Clear); Bacteria Urine 1+ /hpf; Bilirubin Urine Negative (Negative); Blood Urine 2+ (Negative); Color Urine Yellow (Yellow); Glucose Urine UA Negative (Negative); Ketones Urine Negative (Negative); Leukocyte Esterase Ur 2+ LEU/UL (Negative); Nitrate Urine Negative (Negative); Non Pathogenic Casts 0-2; Protein Urine Negative (Negative); RBC Urine 0-2 /hpf (0-2); Specific Grav Ur 1.008 (1.001-1.035); Squamous Epithelial Cell Urine Occasional /hpf (Few); Urobilinogen Urine 0.2 mg/dL (<2.0); WBC Urine 21-50 /hpf; pH Urine 6.5 (5.0-9.0)
[2023-05-07 21:11] LABS: Add Urine Microscopic? YES
[2023-05-07 21:15] LABS: Alanine Aminotransferase 18 U/L (6-35); Albumin Level 4.6 g/dL (3.5-5.1); Alkaline Phosphatase 70 U/L (38-126); Anion Gap 10 mmol/L (8-16); Aspartate Amino Transferase 24 U/L (14-36); Bilirubin,Total 0.3 mg/dL (0.2-1.3); Blood Urea Nitrogen 14 mg/dL (7-17); Calcium 8.9 mg/dL (8.4-10.2); Carbon Dioxide 25 mmol/L (22-30); Chloride 103 mmol/L (98-107); Estimated CRCL calculation 88 ml/min; Estimated Glomerular Filt Rate > 60; Glucose 89 mg/dL (65-110); Lipase 158 U/L (23-300); Potassium 4.1 mmol/L (3.4-5.0); Sodium 138 mmol/L (137-145)
--- NOTE | 2023-05-07 22:42 | PC.NURSE ---
Patient approached intake desk and informed group underwriter that she is going to go to [facility]. Patient alert and ambulatory upon leaving the ED.
== END 2023-05-07 22:42 | disposition left against medical advice (07) ==
LOC: ANHED 22:55
PROVIDERS: Emergency Provider Emergency Medicine; PCP Family Medicine
DX: R10.32 Left lower quadrant pain (principal)
CPT/HCPCS: 36415; 80053; 81001; 83690; 85025; 87077; 87086; 87186; 99199

== ENCOUNTER 2023-05-31 08:04 | Outpatient (CLI) | payer OTHER, SELFPAY ==
--- NOTE | ~2023-05-31 | NM_ITS ---
EXAM: NM gastric emptying study DATE: 05/31/2023 12:37 INDICATION: Nausea with vomiting, unspecified. TECHNIQUE: A gastric emptying study was performed using the methodology of Blossom HENDRICKS, et al. J Nucl Med 2007; 48:568-572. The patient was given a meal consisting of 2 scrambled eggs labeled with 0.962 mCi Tc-99m sulfur colloid, 2 slices of toast, two packages of jam, and approximately 120 mL of water . Simultaneous anterior and posterior 1-min images of the abdomen were obtained with the patient supi ne at multiple time points over a total period of 4 hours. The geometric mean of anterior and posteri or views was determined, and the percentage retention was calculated for each time point. COMPARISON: CT abdomen and pelvis 05/03/2023 FINDINGS: Gastric retention of the radiotracer-labeled meal was 66%, 51%, and 5% at the 1-hour, 2-ho ur, and 4-hour time points, respectively. With this technique, apparent rapid gastric emptying is sug gested by <30% gastric retention at 1 hour. Delayed gastric emptying is defined by gastric retention of >90% at 1 hour, >60% retention at 2 hours, or >10% retention at 4 hours. IMPRESSION: 1. Normal gastric emptying. Reviewed, dictated and finalized at location A. IMPRESSION: 1. Normal gastric emptying.
== END 2023-05-31 08:05 | disposition home or self-care (01) ==
PROVIDERS: PCP Family Medicine; Visit Provider Nurse Practitioner Family
DX: R11.2 Nausea with vomiting, unspecified (principal)
CPT/HCPCS: 78264; A9541

== ENCOUNTER → 2023-06-01 09:31 | Outpatient (CLI) | payer OTHER, SELFPAY ==
--- NOTE | ~2023-06-01 | US_ITS ---
EXAMINATION: US pelvic complete DATE: 06/01/2023 09:55 INDICATION: Right ovarian cyst Comparison:Ultrasound dated 05/10/2022 TECHNIQUE: Multiple transabdominal sonographic images of the pelvis performed. FINDINGS: The uterus measures 6.4 x 2.8 x 3.9 cm. There is an IUD in the endometrium. The endometrial complex measures 6 mm. The right ovary measures 2.3 x 2.2 x 2.2 cm and the left ovary measures 3.6 x 1.6 x 3.1 cm. There ar e small follicles in each ovary. Normal doppler signal in both ovaries. There is no free fluid in the pelvis. There are no abnormal masses seen on either side. IMPRESSION: 1. Unremarkable pelvic ultrasound. Reviewed, dictated and finalized at location B.
== END ==
PROVIDERS: PCP Nurse Practitioner; Visit Provider Nurse Practitioner
DX: N83.201 Unspecified ovarian cyst, right side (principal)
CPT/HCPCS: 76856

== ENCOUNTER 2023-06-08 08:01 | Outpatient (CLI) | payer OTHER, SELFPAY ==
--- NOTE | ~2023-06-08 | NM_ITS ---
EXAMINATION: NM hepatobiliary wo pharm DATE: 06/08/2023 10:33 INDICATION: Nausea with vomiting COMPARISON: None. TECHNIQUE: 2.6 mCi Tc-99m mebrofenin (Choletec) was administered intravenously. Scintigraphic images of the abdomen were obtained for one hour. At the 1 hour time point, the patient drank 8 oz Ensure, and imaging was continued for 60 minutes. Gallbladder ejection fraction was calculated by the technol ogist. FINDINGS: There is normal clearance of radiotracer from the blood pool. There is homogeneous tracer u ptake by the liver. Activity progresses to the bowel and gallbladder. The gallbladder ejection fract ion (GBEF) is 75%. Note that with this technique, normal GBEF >= 33%. IMPRESSION: 1. Normal hepatobiliary scan Reviewed, dictated and finalized at location A.
== END 2023-06-08 08:02 | disposition home or self-care (01) ==
LOC: ANHIMG 08:02
PROVIDERS: PCP Physician Assistant; Visit Provider Nurse Practitioner Family
DX: R11.2 Nausea with vomiting, unspecified (principal); R10.9 Unspecified abdominal pain
CPT/HCPCS: 78226; A9537

== ENCOUNTER 2023-06-14 14:57 | Outpatient (CLI) | payer OTHER, SELFPAY ==
[2023-06-14 16:20] LABS: Basophils Percent Auto 0.5 % (0.2-1.2); Eosinophils Absolute Auto 0.2 K/mm3 (0-0.3); Eosinophils Percent Auto 2.6 % (0-4.4); Hematocrit 42.2 % (37.0-47.0); Hemoglobin 13.9 g/dL (12.0-15.0); Immature Granulocyte Absolute 0.03 K/mm3 (0.00-0.031); Immature Granulocyte Percent A 0.3 % (0-0.5); Lymphocytes Absolute Auto 2.08 K/mm3 (0.9-3.2); Lymphocytes Percent Auto 23.7 % (18.3-44.2); Mean Corpuscular HGB Conc 32.9 g/dl (32-36); Mean Corpuscular Volume 90.9 fl (80-100); Mean Platelet Volume 9.4 fl (7.4-10.4); Monocytes Absolute Auto 0.7 K/mm3 (0.1-0.6); Monocytes Percent Auto 7.7 % (2.6-8.5); Neutrophils Absolute Auto 5.7 K/mm3 (1.3-6.7); Neutrophils Percent Auto 65.2 % (45.5-73.1); Platelet Count Result 328 k/mm3 (150-375); Red Blood Count 4.64 M/mm3 (4.2-5.4); Red Cell Distribution Width 11.9 % (11.5-14.5); White Blood Count 8.8 K/mm3 (4.5-10.0)
[2023-06-14 16:40] LABS: Alanine Aminotransferase 15 U/L (6-35); Albumin Level 4.6 g/dL (3.5-5.1); Alkaline Phosphatase 79 U/L (38-126); Anion Gap 5 mmol/L (8-16); Aspartate Amino Transferase 28 U/L (14-36); Bilirubin,Total 0.4 mg/dL (0.2-1.3); Blood Urea Nitrogen 8 mg/dL (7-17); Calcium 9.1 mg/dL (8.4-10.2); Carbon Dioxide 26 mmol/L (22-30); Chloride 104 mmol/L (98-107); Estimated Glomerular Filt Rate > 60; Glucose 88 mg/dL (65-110); Potassium 3.7 mmol/L (3.4-5.0); Sodium 135 mmol/L (137-145)
== END 2023-06-14 14:58 | disposition home or self-care (01) ==
LOC: ANHLAB 14:59
PROVIDERS: PCP Family Medicine; Visit Provider Physician Assistant
DX: R30.0 Dysuria (principal)
CPT/HCPCS: 36415; 80053; 85025

== ENCOUNTER 2023-07-04 13:30 | Outpatient (CLI) | payer OTHER, SELFPAY ==
[2023-07-11 15:31] LABS: Pancreatic Elastase, Stool >500 mcg/g
[2023-07-12 03:48] LABS: Calprotectin, Stool 31 mcg/g
== END 2023-07-04 13:31 | disposition home or self-care (01) ==
PROVIDERS: PCP Family Medicine; Visit Provider Nurse Practitioner Family
DX: R19.7 Diarrhea, unspecified (principal)
CPT/HCPCS: 82653; 83993

== ENCOUNTER 2023-10-05 08:26 | Outpatient (CLI) | payer OTHER, SELFPAY ==
[2023-10-05 08:54] LABS: Appearance Urine Clear (Clear); Bilirubin Urine Negative (Negative); Blood Urine Negative (Negative); Color Urine Yellow (Yellow); Glucose Urine UA Negative (Negative); Ketones Urine Negative (Negative); Leukocyte Esterase Ur Negative LEU/UL (Negative); Nitrate Urine Negative (Negative); Protein Urine Negative (Negative); Urobilinogen Urine 0.2 mg/dL (<2.0)
[2023-10-05 08:56] LABS: Add Urine Microscopic? NO
== END 2023-10-05 08:27 | disposition home or self-care (01) ==
LOC: ANHLAB 08:27
PROVIDERS: PCP Family Medicine; Visit Provider Physician Assistant
DX: R35.0 Frequency of micturition (principal)
CPT/HCPCS: 81003

== ENCOUNTER 2023-10-18 09:11 | Outpatient (CLI) | payer OTHER, SELFPAY ==
[2023-10-18 09:43] LABS: Basophils Percent Auto 0.3 % (0.2-1.2); Eosinophils Absolute Auto 0.3 K/mm3 (0-0.3); Eosinophils Percent Auto 2.4 % (0-4.4); Hematocrit 42.5 % (37.0-47.0); Hemoglobin 14.2 g/dL (12.0-15.0); Immature Granulocyte Absolute 0.05 K/mm3 (0.00-0.031); Immature Granulocyte Percent A 0.4 % (0-0.5); Lymphocytes Absolute Auto 2.72 K/mm3 (0.9-3.2); Lymphocytes Percent Auto 22.8 % (18.3-44.2); Mean Corpuscular HGB Conc 33.4 g/dl (32-36); Mean Corpuscular Hemoglobin 30.1 pg (26-34); Mean Corpuscular Volume 90.2 fl (80-100); Mean Platelet Volume 8.7 fl (7.4-10.4); Monocytes Absolute Auto 0.8 K/mm3 (0.1-0.6); Monocytes Percent Auto 6.5 % (2.6-8.5); Neutrophils Absolute Auto 8.1 K/mm3 (1.3-6.7); Neutrophils Percent Auto 67.6 % (45.5-73.1); Platelet Count Result 349 k/mm3 (150-375); Red Blood Count 4.71 M/mm3 (4.2-5.4); Red Cell Distribution Width 12.1 % (11.5-14.5); White Blood Count 11.9 K/mm3 (4.5-10.0)
[2023-10-18 09:55] LABS: Alanine Aminotransferase 27 U/L (6-35); Albumin Level 4.3 g/dL (3.5-5.1); Alkaline Phosphatase 84 U/L (38-126); Anion Gap 7 mmol/L (8-16); Aspartate Amino Transferase 29 U/L (14-36); Bilirubin,Total 0.7 mg/dL (0.2-1.3); Blood Urea Nitrogen 3 mg/dL (7-17); Carbon Dioxide 26 mmol/L (22-30); Chloride 101 mmol/L (98-107); Estimated Glomerular Filt Rate > 60; Glucose 93 mg/dL (65-110); Potassium 3.4 mmol/L (3.4-5.0); Sodium 134 mmol/L (137-145)
[2023-10-18 10:30] LABS: Erythrocyte Sedimentation Rate 8 mm/hr (0-20)
== END 2023-10-18 09:12 | disposition home or self-care (01) ==
LOC: ANHLAB 09:13
PROVIDERS: PCP Family Medicine; Visit Provider Physician Assistant
DX: R53.83 Other fatigue (principal)
CPT/HCPCS: 36415; 80053; 85025; 85652

== ENCOUNTER 2025-01-29 09:54 | Emergency (ER) | payer BC, SELFPAY ==
[2025-01-29 10:02] VITALS: BP 111/83; PULSE 83; RESP 18; TEMP 37.2; O2SAT 100
[2025-01-29 10:30] LABS: EDCOVIDSCREEN Negative (Negative); EDINFLUASCREEN Negative (Negative); EDINFLUBSCREEN Negative (Negative)
--- NOTE | 2025-01-29 10:44 | ED_ITS ---
HPI - General Adult General Chief complaint: Upper Respiratory Infection Stated complaint: Cough/SOB/Dizzy Source: patient Mode of arrival: ambulatory Limitations: no limitations History of Present Illness HPI narrative: Patient presents for evaluation of sick symptoms for the last 4 days. Symptoms include fever sore throat, cough, shortness of breath, ear discomfort, nausea and vomiting. 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 She has tried taking DayQuil and Tylenol for her symptoms. Related Data Home Medications ?Medication ?Instructions ?Recorded ?Confirmed ?Last Taken ?Type citalopram 20 mg tablet 60 mg PO HS 02/08/22 01/29/25 01/17/23 History levonorgestrel (Mirena) 1 device intrauterine ONCE 09/10/22 01/29/25 01/17/23 History aspirin 81 mg tablet,delayed 81 mg PO DAILY 01/06/23 03/01/24 01/17/23 History release epinephrine 0.3 mg/0.3 mL 0.3 mg IM ONCE PRN Allergic 01/06/23 03/01/24 01/17/23 History injection, auto-injector (EpiPen Reaction 2-Emanuel) lithium carbonate 300 mg 900 mg PO .QHS 05/31/23 01/29/25 Unknown History tablet,extended release alprazolam 0.5 mg tablet mg 01/29/25 Unknown History rmewauuyvm-sjiddqfzduwdk-yaiihuoi cap 01/29/25 Unknown History 50 mg-300 mg-40 mg capsule citalopram 40 mg tablet mg 01/29/25 Unknown History galcanezumab-gnlm 120 mg/mL mg subcut 01/29/25 Unknown History subcutaneous pen injector (Emgality Pen) Allergies Allergy/AdvReac Type Severity Reaction Status Date / Time Sulfa (Sulfonamide Allergy Severe Swelling Verified 01/29/25 10:10 Antibiotics) of Lip/Tongue/Throat sulfamethizole Allergy Severe Swelling Verified 01/29/25 10:10 of Lip/Tongue/Throat sulfamethoxazole Allergy Severe Swelling Verified 01/29/25 10:10 of Lip/Tongue/Throat trimethoprim Allergy Severe Swelling Verified 01/29/25 10:10 of Lip/Tongue/Throat amoxicillin Allergy Intermediate Hives Verified 01/29/25 10:10 lamotrigine Allergy Intermediate Hives Verified 01/29/25 10:10 ketorolac AdvReac Severe CAUSED Verified 01/29/25 10:10 LITHIUM LEVEL TO BE TOXIC diphenhydramine (From AdvReac Anxiety Verified 01/29/25 10:10 Benadryl) keflex AdvReac Severe Anaphylaxis Uncoded 01/29/25 10:10 Review of Systems Review of Systems: CONSTITUTIONAL: Reports fever and chills. EYES: Denies visual changes, redness, or discharge. ENT: Reports sore throat and bilateral otalgia CARDIOVASCULAR: Denies chest pain, palpitations, or edema. RESPIRATORY: reports cough and shortness of breath. GASTROINTESTINAL: Reports nausea, vomiting, diarrhea. GENITOURINARY: Denies dysuria or hematuria. SKIN: Denies rash or itching. MUSCULOSKELETAL: Denies back pain, joint pain, or myalgia. NEUROLOGIC: Denies headache, numbness, dizziness, or weakness. PSYCHIATRIC: Denies anxiety or depression. 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) MDD (major depressive disorder), recurrent episode, moderate Hx of suicide attempt RICK (generalized anxiety disorder) Folliculitis due to Pseudomonas aeruginosa Dysmenorrhea Chronic tension-type headache, not intractable Chronic cluster headache, not intractable Bipolar 2 disorder Acute superficial gastritis without hemorrhage Acute cystitis without hematuria Fever Alternating constipation and diarrhea Encounter for surgical aftercare following surgery on the digestive system Acute appendicitis Gastritis Low blood pressure Nipple discharge Chest pain, atypical Muscle twitching Abnormal EKG Sinusitis Dysfunctional uterine bleeding Bipolar disorder in partial remission Chronic migraine Nausea Surgical History Surgical History S/P laparoscopic appendectomy History of laparoscopic appendectomy 10/22/[address] Lopez. No pertinent past surgical history Family History Family History Father Depression Heart disease Hypertension Social History Social History Social History: Single Smoking status: Current every day smoker Tobacco type: e-cigarettes/vaping Second hand tobacco smoke exposure: Yes Additional smoking assessment comments: VAPING 4 YEARS Alcohol intake: never Substance use: current Substance use type: marijuana Last use: 3mo ago Lack of Transportation: No Lack of Food: Never True Current Housing: I Have Housing Concerned About Future Housing: No Difficulty Paying Gas/Electric Bills: No Difficulty Paying for Meds: No Currently Unemployed: No Education: High School Diploma/GED Difficulty w/ Childcare or Family Care: No Living arrangements: with family Occupation/Education: occupation Gender identity (if verbalized by the patient): Female Sexual Orientation (if Verbalized by the Patient): Straight or Heterosexual Spiritual care concerns: No Exam Narrative: GENERAL: Well-appearing, well-nourished, and in no acute distress. HEAD: Normocephalic, atraumatic. EYES: PERRLA and EOMI. ENT: Nares clear, no rhinorrhea or epistaxis. Mucous membranes moist. Oropharynx without tonsillar hypertrophy exudate or other lesions. Bilateral TMs pearly valdes nonbulging NECK: Supple. No adenopathy or masses. No carotid bruits or JVD CHEST: Clear to auscultation. No respiratory distress. No wheezes rales or rhonchi HEART: Regular rate and rhythm. No murmur heard. Normal peripheral pulses. ABDOMEN: Soft, nontender, nondistended, normal active bowel sounds. EXTREMITIES: Normal range of motion. No edema. SKIN: Warm, dry, no rash. NEURO: No focal deficits. Alert and oriented x3. PSYCH: Normal mood and affect. Course Course Emergency Course: This is a 24-year-old female who presented for evaluation of sick symptoms. COVID and influenza negative. Exam is consistent with acute viral syndrome. Will discharge with Zofran. Increase hydration. Hhjp-ehl-rhfdryb agents for symptom management. Follow up with primary provider. Go to the ER for worsening symptoms. Patient in agreement with plan of care Level of Care: Express Care Visit Vital Signs Vital signs: Vital Signs Temperature 37.2 C 01/29/25 10:02 Pulse Rate 83 01/29/25 10:02 Respiratory Rate 18 01/29/25 10:02 Blood Pressure 111/83 01/29/25 10:02 Pulse Oximetry 100 01/29/25 10:02 Temperature 37.2 C 01/29/25 10:02 Pulse Rate 83 01/29/25 10:02 Respiratory Rate 18 01/29/25 10:02 Blood Pressure 111/83 01/29/25 10:02 Pulse Oximetry 100 01/29/25 10:02 Oxygen Delivery Room Air 01/29/25 10:12 Medical Decision Making Vital Signs Vital Signs: Vital Signs Temperature 37.2 C 01/29/25 10:02 Pulse Rate 83 01/29/25 10:02 Respiratory Rate 18 01/29/25 10:02 Blood Pressure 111/83 01/29/25 10:02 Pulse Oximetry 100 01/29/25 10:02 Temperature 37.2 C 01/29/25 10:02 Pulse Rate 83 01/29/25 10:02 Respiratory Rate 18 01/29/25 10:02 Blood Pressure 111/83 01/29/25 10:02 Pulse Oximetry 100 01/29/25 10:02 Oxygen Delivery Room Air 01/29/25 10:12 Lab Data Labs: Lab Results 01/29/25 Range/Units 10:28 POC Influenza A Ag Negative (Negative) POC Influenza B Ag Negative (Negative) POC SARS CoV-2 Ag Negative (Negative) Discharge Plan Discharge Clinical Impression: Acute viral syndrome Patient Disposition: Home Condition: Stable Instructions: Antibiotic Form, Viral Syndrome (ED) Patient Language: Belarusian Prescriptions: New ondansetron 4 mg tablet,disintegrating 4 mg PO Q8H PRN (Reason: nausea and vomiting) Qty: 15 0RF No Action citalopram 40 mg tablet alprazolam 0.5 mg tablet dmowotpwmw-vcohqjgzopvus-qrkh 50-300-40 mg capsule Emgality Pen 120 mg/mL pen injector SUBCUT Mirena 20 mcg/24 hours (8 yrs) 52 mg intrauterine device 1 device intrauterine ONCE Rx Instructions: as a single dose citalopram 20 mg tablet 60 mg PO HS lithium carbonate 300 mg tablet extended release 900 mg PO .QHS Linzess 72 mcg capsule 72 mcg PO QAM Qty: 30 5RF famotidine 20 mg tablet 20 mg PO QHS Qty: 30 5RF aspirin [Adult Aspirin EC Low Strength] 81 mg Tablet,Delayed Release (Dr/Ec) 81 mg PO DAILY epinephrine [EpiPen 2-Emanuel] 0.3 mg/0.3 mL auto-injector 0.3 mg IM ONCE PRN (Reason: Allergic Reaction) Rx Instructions: as a single dose; may repeat once Nurtec ODT 75 mg tablet,disintegrating 75 mg PO ONCE PRN (Reason: migraine headache) Qty: 14 0RF Rx Instructions: as a single dose pantoprazole 40 mg tablet,delayed release (DR/EC) See Rx Instructions .ROUTE .COMPLEX Qty: 90 3RF Dose Instruction: TAKE 1 TABLET BY MOUTH EVERY DAY IN THE MORNING Rx Instructions: TAKE 1 TABLET BY MOUTH EVERY DAY IN THE MORNING Follow-up/Referrals: Razia Ellis MD [Physician] - Stand Alone Forms: Work/School Release IP Time of Disposition: 10:32
== END 2025-01-29 10:36 | disposition home or self-care (01) ==
PROVIDERS: Emergency Provider Nurse Practitioner
DX: B34.9 Viral infection, unspecified (principal); Z20.822 Contact with and (suspected) exposure to COVID-19; F17.290 Nicotine dependence, other tobacco product, uncomplicated; F41.1 Generalized anxiety disorder; F31.81 Bipolar II disorder; R01.1 Cardiac murmur, unspecified; Z79.82 Long term (current) use of aspirin
CPT/HCPCS: 87426; 87804; 99213; G0463

== ENCOUNTER 2025-06-07 15:37 | Outpatient (CLI) | payer BC, SELFPAY ==
--- NOTE | ~2025-06-07 | US_ITS ---
EXAMINATION: US pelvic complete INDICATION: Pelvic pain. Abnormal uterine bleeding. Comparison:No prior studies for comparison. TECHNIQUE: Multiple transabdominal sonographic images of the pelvis performed. FINDINGS: The uterus measures 7.5 x 3.3 x 4.3 cm. There is an IUD in the endometrium. The endometrial complex measures 5 mm. The right ovary measures 3.1 x 1.7 x 2 cm and the left ovary measures 3 x 2 x 2.3 cm. There are small follicles in each ovary. Normal doppler signal in both ovaries. There is no free fluid in the pelvis. There are no abnormal masses seen on either side. IMPRESSION: 1. Unremarkable pelvic ultrasound. Reviewed, dictated and finalized at location O.
== END 2025-06-07 15:38 | disposition home or self-care (01) ==
LOC: MICIMG 15:37
PROVIDERS: PCP Nurse Practitioner; Visit Provider Nurse Practitioner
DX: R10.2 Pelvic and perineal pain (principal); N93.8 Other specified abnormal uterine and vaginal bleeding
CPT/HCPCS: 76856